=== PATIENT | female | born 1985 | race Caucasian/White ===

== ENCOUNTER → 2023-03-12 | Outpatient (CLI) | payer BC, SELFPAY ==
[2023-03-12 13:17] LABS: Absolute Lymphocyte Count 5.64 X10^3/uL (0.83-4.51); Absolute Neutrophil Count 4.1 X10^3/uL (2.0-7.7); Basophil# 0.07 X10^3/uL; Basophil% 0.7 % (0-1); Eosinophil# 0.12 X10^3/uL; Eosinophils% 1.1 % (0-5); Erythrocyte Sedimentation Rate 17 mm/hr (0-30); Hematocrit 49.4 % (37-47); Hemoglobin 17.4 g/dL (12.0-15.0); Lymphocyte # 5.64 X10^3/ul (0.83-4.51); Lymphocyte % 53.8 % (19-41); Mean Corp Hgb Conc 35.2 g/dL (32-36); Mean Corpuscular Hgb 30.7 pg (27.0-32.0); Mean Corpuscular Volume 87.1 fL (81-99); Mean Platelet Vol. 9.7 fl (6.2-12.0); Monocyte# 0.56 X10^3/uL; Monocyte% 5.3 % (0-10); NRBC Flagged by Analyzer 0 % (0-5); Neutrophil # 4.05 X10^3/uL (2.7-7.7); Neutrophil % 38.7 % (47-70); POSITIVE DIFFERENTIAL YES; Platelet Count 275 K/mm3 (150-450); RBC Distribution Width CV 12.9 % (11.6-14.6); RBC Distribution Width SD 40.7 fl (35.1-43.9); Red Blood Count 5.67 M/mm3 (4.2-5.4); White Blood Count 10.5 K/mm3 (4.4-11.0)
[2023-03-12 13:18] LABS: Differential Indicated SCAN CRITERIA MET
[2023-03-12 13:44] LABS: Anion Gap 4 (5-15); BUN 10 mg/dL (7-18); BUN/Creat Ratio 12.6 RATIO (10-20); CRP, High Sensitivity Cardiac 2.15 mg/L; Calcium,Total 9.5 mg/dL (8.5-10.1); Chloride 103 mmol/L (98-107); Cholesterol 261 mg/dL (200); Creatinine, Serum 0.79 mg/dL (0.55-1.02); EST Glomerular Filtration Rate 87 mL/min (>60); Est Glom Filt Rate - Afr Amer 106 mL/min (>60); Glucose 231 mg/dL (74-106); High Density Lipoprotein 32 mg/dL; Potassium 3.9 mmol/L (3.5-5.1); Rheumatoid Factor < 10.0 IU/mL (<15); Sodium Level 134 mmol/L (136-145); Triglycerides 390 mg/dL; Very Low Density Lipoprotein 78 mg/dL (5-40)
[2023-03-16 13:07] LABS: Anti-Nuclear Antibody Test Negative (.); Anti-Scleroderma-70 AB <0.2 AI (0.0-0.9)
[2023-03-16 17:07] LABS: Anti-Cardiolipin Ab, IgG, Qn < 9 GPL U/mL (0-14); Anti-Cardiolipin Ab, IgM, Qn < 9 MPL U/mL (0-12); Beta-2-Glycoprotein I IgA <9 (0-25); Beta-2-Glycoprotein I IgG <9 (0-20); Beta-2-Glycoprotein I IgM <9 (0-32); Dilute Prothrombin Time (dPT) 38.6 sec (0.0-47.6); Dilute Russell Viper Venom 39.6 sec (0.0-47.0); Interpretation Comment: (.); dPT Confirm Ratio 1.22 Ratio (0.00-1.34)
== END | disposition home or self-care (01) ==
LOC: LAB 12:27
PROVIDERS: PCP Registered Nurse; Referring Provider Internal Medicine Cardiovascular Disease; Visit Provider Internal Medicine Cardiovascular Disease
DX: I10 Essential (primary) hypertension (principal); F17.200 Nicotine dependence, unspecified, uncomplicated; I73.00 Raynaud's syndrome without gangrene
CPT/HCPCS: 36415; 80048; 80061; 85025; 85652; 86038; 86141; 86146; 86147; 86235; 86431

== ENCOUNTER → 2023-04-09 | Outpatient (CLI) | payer BC, SELFPAY ==
--- NOTE | 2023-04-09 12:54 | ART_ITS ---
Reason For Study: toe discoloration Procedure A bilateral lower extremity continuous wave Doppler with analog waveform analysis and ankle brachial indexes. TOE PPG'S TAKEN ON ALL DIGITS. PRESSURES TAKEN ON GREAT TOE'S ONLY DUE TO TOE SIZE. Left Segmental Pressures Left brachial= 132mmHg. Left posterior tibial artery = 138mmHg. Left dorsalis pedis artery = 136mmHg. Left digit = 118 mmHg. The left dorsalis pedis waveforms are triphasic. The left posterior tibial artery waveforms are triphasic. Right Segmental Pressures Right brachial= 124mmHg. Right posterior tibial artery = 133mmHg. Right dorsalis pedis artery = 124mmHg. Right digit = 41 mmHg. The right dorsalis pedis waveforms are triphasic. The right posterior tibial artery waveforms are triphasic. Indices The right ankle brachial index by the posterior tibial artery is 1.01. The right ankle brachial index by the dorsalis pedis is .94. The right digital-brachial index is .31. The left ankle brachial index by the posterior tibial artery is 1.05. The left ankle brachial index by the dorsalis pedis is 1.03. The left digital-brachial index is .89. VL/Ankle Brachial Index Interpretation Summary Right DUNCAN 1.01, normal. Doppler/PVR waveforms of the right leg normal at rest. TBI and digit waveforms diminished, pedal/digit disease vs spasm Left DUNCAN 1.05, normal. TBI and Doppler/PVR waveforms of the left leg normal at rest. Ordering Physician: Yamilet Curiel Performed By: Alex Reyna RVT
== END | disposition home or self-care (01) ==
LOC: CVS 12:51
PROVIDERS: PCP Registered Nurse; Referring Provider Internal Medicine Cardiovascular Disease; Visit Provider Internal Medicine Cardiovascular Disease
DX: I73.00 Raynaud's syndrome without gangrene (principal); E11.9 Type 2 diabetes mellitus without complications; F17.200 Nicotine dependence, unspecified, uncomplicated; I10 Essential (primary) hypertension; E78.5 Hyperlipidemia, unspecified
CPT/HCPCS: 93922

== ENCOUNTER → 2023-04-21 | Outpatient (CLI) | payer BC, SELFPAY | END | disposition home or self-care (01) | LOC: PSN 13:13 | PROVIDERS: PCP Registered Nurse; Referring Provider Internal Medicine Cardiovascular Disease; Visit Provider Internal Medicine Cardiovascular Disease | DX: I73.00 Raynaud's syndrome without gangrene (principal); I10 Essential (primary) hypertension; R00.2 Palpitations | CPT/HCPCS: 93225; 93226 ==

== ENCOUNTER → 2023-05-21 | Outpatient (CLI) | payer BC, SELFPAY ==
--- NOTE | 2023-05-21 10:02 | ECHOD_ITS ---
Reason For Study: HYPERTENSION Procedure This was a 2D Doppler, Color Flow transthoracic echocardiogram. The study was technically difficult. Exam performed in department. Left Ventricle Normal size and thickness. The left ventricular ejection fraction is 60 %. Normal diastololic function. Right Ventricle Normal right ventricle. Atria The left and right atria are normal. Bubble contrast study is negative for PFO/ASD. Mitral Valve Trivial mitral valve insufficiency. Tricuspid Valve Trivial tricuspid valve insufficiency. Unable to estimate RV systolic pressure due to insufficient tricuspid regurgitant envelope. Aortic Valve Trisinus/trileaflet aortic valve. Pulmonic Valve The pulmonic valve is not well visualized. Great Vessels Normal sized aortic root. Pericardium/Pleural No pericardial effusion. Medication 22 gauge I.V. with prn adaptor inserted into right arm. Performed a rapid injection of agitated mix of 9 cc saline and 1cc air to assess for atrial septal defect. MMode/2D Measurements & Calculations LVIDd: 4.2 cm IVSd: 0.99 cm Ao root diam: 3.1 cm LVIDs: 2.9 cm LVPWd: 1.0 cm RVDd: 2.9 cm FS: 30.6 % LAV(MOD-bp): 20.4 ml LVAd ap4: 25.5 cm2 SV(MOD-sp4): 40.8 ml LAV(MOD-bp) Indexed: 11.5 ml/m2 LVLd ap4: 7.6 cm LAV(MOD-sp2): 21.9 ml EDV(MOD-sp4): 70.0 ml LAV(MOD-sp4): 19.1 ml EDV(sp4-el): 72.4 ml LVAs ap4: 14.4 cm2 LVLs ap4: 5.9 cm ESV(MOD-sp4): 29.2 ml ESV(sp4-el): 29.9 ml EF(MOD-sp4): 58.3 % EF(sp4-el): 58.7 % SV(sp4-el): 42.4 ml LA A4 area: 9.8 cm2 LA dimension(2D): 3.1 cm RA A4 area: 9.5 cm2 Time Measurements MV dec time: 0.17 sec Doppler Measurements & Calculations MV E max west: 68.1 cm/sec Lat Peak E' West: 14.1 cm/sec Med Peak E' West: 10.1 cm/sec MV A max west: 63.5 cm/sec E/E' lat: 4.8 E/E' med: 6.7 MV E/A: 1.1 Ao V2 max: 108.0 cm/sec LV V1 max: 89.7 cm/sec PA V2 max: 94.5 cm/sec Ao max P.7 mmHg LV V1 max P.2 mmHg ECHO/Echo Complete Interpretation Summary The left ventricular ejection fraction is 60 %. Bubble contrast study is negative for PFO/ASD. The study was technically difficult. Ordering Physician: Yamilet Curiel Referring Physician: PEDRO HAWTHORNE Performed By: Janel Jimenez RDCS
--- OUTSIDE RECORDS SUMMARY | 2023-05-21 10:25 | XMS RPT_ITS | CCD ---
Author Name Unknown Address [address] [place] [address] Organization [facility] Care Team Providers Care Certified Ophthalmic Surgical Assistant Name Role Phone MARINE DIALS SUPERVISOR-CONTINUOUS MINING MACHINE LODE MINER, KIRSTEN A Primary Care Physi ming [place] Rounding Nurse, Davi Unavailable Unavai lable MARINE DIALS SUPERVISOR-CONTINUOUS MINING MACHINE LODE MINER, KIRSTEN A Primary Care Un available SONAM LY MD Consulting Unavailable FLORIDALMA DODSON MD Attending Unavailable DENAE LEVY, DR KANG Admitting Unavailab SALLY Rondon MD Consulting Unavaila ble MARINE DIALS SUPERVISOR-CONTINUOUS MINING MACHINE LODE MINER, KIRSTEN A Primary Care Un available MARINE DIALS SUPERVISOR-CONTINUOUS MINING MACHINE LODE MINER, KIRSTEN A Attending Un available MARINE DIALS SUPERVISOR-CONTINUOUS MINING MACHINE LODE MINER, KIRSTEN A Primary Care Un available MARINE DIALS SUPERVISOR-CONTINUOUS MINING MACHINE LODE MINER, KIRSTEN A Attending Un available MARINE DIALS SUPERVISOR-CONTINUOUS MINING MACHINE LODE MINER, KIRSTEN A Primary Care Un available MARINE DIALS SUPERVISOR-CONTINUOUS MINING MACHINE LODE MINER, KIRSTEN A Attending Un available MARINE DIALS SUPERVISOR-CONTINUOUS MINING MACHINE LODE MINER, KIRSTEN A Primary Care Un available CAROL PINEDO MD Attending Unavailable MARINE DIALS SUPERVISOR-CONTINUOUS MINING MACHINE LODE MINER, KIRSTEN A Primary Care Un available MARINE DIALS SUPERVISOR-CONTINUOUS MINING MACHINE LODE MINER, KIRSTEN A Attending Un available MARINE DIALS SUPERVISOR-CONTINUOUS MINING MACHINE LODE MINER, KIRSTEN A Primary Care Un available KIA ESPINAL MD Attending Unavailable MARINE DIALS SUPERVISOR-CONTINUOUS MINING MACHINE LODE MINER, KIRSTEN A Primary Care Un available ACRMEN LEVY, DR NAM Attending Unavailab le Medications Current Medications Medication Drug Class(es) Dates Sig (Normalized) Sig (Original) albuterol MDI (90 mcg/inh) CFC free inhalation aerosol (6 sources) Start: 08-15-2022 take 2 puff(s) by inhalation every four hours as needed for wheezing albuterol MDI (90 mcg/inh) CFC free inhalation aerosol 2 puff(s), Inhalation, q4h, PRN as needed for wheezing, # 8.5 gram(s), 0 Refill(s), Pharmacy: [facility]/pharmacy #[id number], Productive cough, 155, cm, 08/15/22 16:25:00 EDT, Height Start Date: 08/15/22 Status: Ordered amLODIPine 10 mg oral tablet (2 sources) Dihydropyridine Calcium Channel Roseanne Start: 04-12-2023 amLODIPine 10 mg oral tablet Dose : 10 mg = 1 tab(s), Oral, qDay Start Date: 04/12/23 Status: Ordered Problems Active Problems Problem Classification Problem Date Documented Date Episodic/Chronic Anxiety disorders (6 sources) Mixed anxiety and depressive disorder 11-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 Calculus of urinary tract (6 sources) Kidney stone 01-08-2017 Episodic Diabetes mellitus with complications (2 sources) Type 2 diabetes mellitus in obese 03-20-2023 Chronic Disorders of lipid metabolism (5 sources) Hyperlipidemia 11-07-2022 Chronic Epilepsy; convulsions (1 source) Seizure; Translations: [Unspecified convulsions] Onset: 04-13-2023 Episodic Other circulatory disease (2 sources) Cold foot 03-20-2023 Episodic Other connective tissue disease (5 sources) Pain in right lower limb 11-07-2022 Episodic Other connective tissue disease (2 sources) Foot pain 03-20-2023 Episodic Other nutritional; endocrine; and metabolic disorders (6 sources) Obesity 11-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 Other nutritional; endocrine; and metabolic disorders (2 sources) Body mass index 30+ - obesity 03-20-2023 Chronic Other skin disorders (5 sources) Foot callus 11-07-2022 Episodic Substance-related disorders (2 sources) Nicotine dependence 03-20-2023 Chronic Past or Other Problems Problem Classification Problem Date Documented Da te Episodic/Chronic Other screening for suspected conditions (not mental disorders or infectious disease) (2 sources) Encounter for screening for malignant neoplasm of cervix; Translations: [Encounter for screening for malignant neoplasm of cervix] Onset: 11-10-2022 Episodic Results Test Name Value Interpretation Reference Range Facil ity Vital Signs Date Time Vital Sign Value Performing Clinician Faci [facility] 04-13-2023 14:42-0500 Body temperature 97.52 [degF] DR JORGE LUIS PHILIPPE MD [address] [place] [id number] 04-13-2023 14:42-0500 Diastolic Blood Pressure Non-Invasive 70 mm[Hg] DR JORGE LUIS PHILIPPE MD [address] 04-13-2023 14:42-0500 Heart rate 80 /min DR JORGE LUIS PHILIPPE MD [address] 04-13-2023 14:42-0500 Reason For Taking VItal Signs DR JORGE LUIS PHILIPPE MD [address] 04-13-2023 14:42-0500 Respiratory rate 18 /min DR JORGE LUIS PHILIPPE MD [address] 04-13-2023 14:42-0500 Systolic Blood Pressure Non-Invasive 124 mm[Hg] DR JORGE LUIS PHILIPPE MD [address] [place] [id number] 04-13-2023 11:35-0500 Blood Pressure Cuff Size DR JORGE LUIS PHILIPPE MD [address] 04-13-2023 11:35-[address] JORGE LUIS PHILIPPE MD [address] 04-13-2023 11:35-[address] JORGE LUIS PHILIPPE MD [address] [place] [id number] 04-13-2023 11:35-0500 Body temperature 97.52 [degF] DR JORGE LUSI PHILIPPE MD [address] 04-13-2023 11:35-0500 Diastolic Blood Pressure Non-Invasive 67 mm[Hg] DR JORGE LUIS PHILIPPE MD [address] 04-13-2023 11:35-0500 Heart rate 88 /min DR JORGE LUIS PHILIPPE MD [address] [place] [id number] 04-13-2023 11:35-0500 Reason For Taking VItal Signs DR JORGE LUIS PHILIPPE MD [address] [place] [id number] 04-13-2023 11:35-0500 Respiratory rate 18 /min DR JORGE LUIS PHILIPPE MD [address] [place] [id number] 04-13-2023 11:35-0500 Systolic Blood Pressure Non-Invasive 125 mm[Hg] DR JORGE LUIS PHILIPPE MD [address] [place] [id number] 04-13-2023 07:44-05[address] Blood Pressure Cuff Size DR JORGE LUIS PHILIPPE MD [address] [place] [id number] 04-13-2023 07:44-[address] JORGE LUIS PHILIPPE MD [address] [place] [id number] 04-13-2023 07:44-[address] JORGE LUIS PHILIPPE MD [address] [place] [id number] 04-13-2023 07:44-0500 Body temperature 98.06 [degF] DR JORGE LUIS PHILIPPE MD [address] [place] [id number] 04-13-2023 07:44-0500 Diastolic Blood Pressure Non-Invasive 79 mm[Hg] DR JORGE LUIS PHILIPPE MD [address] [place] [id number] 04-13-2023 07:44-0500 Heart rate 80 /min DR JORGE LUIS PHILIPPE MD [address] [place] [id number] 04-13-2023 07:44-0500 Reason For Taking VItal Signs DR JORGE LUIS PHILIPPE MD [address] [place] [id number] 04-13-2023 07:44-0500 Respiratory rate 18 /min DR JORGE LUIS PHILIPPE MD [address] [place] [id number] 04-13-2023 07:44-0500 Systolic Blood Pressure Non-Invasive 121 mm[Hg] DR JORGE LUIS PHILIPPE MD [address] [place] [id number] 04-13-2023 05:00-0500 Heart rate 93 /min DR JORGE LUIS PHILIPPE MD [address] [place] [id number] 04-13-2023 03:48-05[address] Blood Pressure Cuff Size DR JORGE LUIS PHILIPPE MD [address] [place] [id number] 04-13-2023 03:48-[address] JORGE LUIS PHILIPPE MD [facility] 04-13-2023 03:48-[address] JORGE LUIS PHILIPPE MD [facility] 04-13-2023 03:48-0500 Heart rate 95 /min DR JORGE LUIS PHILIPPE MD [address] [place] [id number] 04-13-2023 01:32-0500 Body height [address] JORGE LUIS PHILIPPE MD [facility] 04-13-2023 01:32-0500 Body weight 81.[address] JORGE LUIS PHILIPPE MD [address] [place] [id number] 04-13-2023 01:32-0500 Body weight 33.15 kg/m2 DR JORGE LUIS PHILIPPE MD [address] [place] [id number] 04-13-2023 01:31-0500 Heart rate 86 /min DR JORGE LUIS PHILIPPE MD [facility] 04-12-2023 17:15-0500 Body weight 87.[address] JORGE LUIS PHILIPPE MD [facility] Encounters Encounter Date Encounter Type Care Provider Facility Start: 04-12-2023 End: 04-13-2023 ambulatory KIRSTEN HAWTHORNE DIALS SUPERVISOR-CONTINUOUS MINING MACHINE LODE MINER Facility:A Start: 04-12-2023 End: 04-13-[address] JORGE LUIS PHILIPPE MD [facility] Start: 04-03-2023 End: 04-04-2023 ambulatory KIRSTEN HAWTHORNE DIALS SUPERVISOR-CONTINUOUS MINING MACHINE LODE MINER Facility:B Start: 04-03-2023 End: 04-03-2023 Patient encounter procedure CAROL PINEDO MD [facility] Start: 03-20-2023 End: 03-20-2023 Emergency department patient visit KIRSTEN HAWTHORNE DIALS SUPERVISOR-CONTINUOUS MINING MACHINE LODE MINER Facility:B Start: 01-01-2023 End: 01-02-2023 ambulatory KIRSTEN HAWTHORNE DIALS SUPERVISOR-CONTINUOUS MINING MACHINE LODE MINER Facility:B Start: 01-01-2023 End: 01-01-2023 Patient encounter procedure KIRSTEN HAWTHORNE DIALS SUPERVISOR-CONTINUOUS MINING MACHINE LODE MINER [facility] Start: 12-15-2022 End: 12-15-2022 Emergency department patient visit KIRSTEN HAWTHORNE DIALS SUPERVISOR-CONTINUOUS MINING MACHINE LODE MINER Facility:B Start: 11-13-2022 End: 11-14-2022 ambulatory KIRSTEN HAWTHORNE DIALS SUPERVISOR-CONTINUOUS MINING MACHINE LODE MINER Facility:B Start: 11-13-2022 End: 11-13-2022 Patient encounter procedure KIRSTEN HAWTHORNE DIALS SUPERVISOR-CONTINUOUS MINING MACHINE LODE MINER [facility] Start: 11-10-2022 End: 11-15-2022 ambulatory KIRSTEN HAWTHORNE DIALS SUPERVISOR-CONTINUOUS MINING MACHINE LODE MINER Facility:B Start: 11-10-2022 End: 11-14-2022 Outreach Lab KIRSTEN HAWTHORNE DIALS SUPERVISOR-CONTINUOUS MINING MACHINE LODE MINER [facility] Start: 10-24-2022 End: 10-25-2022 ambulatory KIRSTEN HAWTHORNE DIALS SUPERVISOR-CONTINUOUS MINING MACHINE LODE MINER Facility:B Start: 10-24-2022 End: 10-24-2022 Patient encounter procedure KIRSTEN HAWTHORNE DIALS SUPERVISOR-CONTINUOUS MINING MACHINE LODE MINER [facility] Procedures Date Procedure Procedure Detail Performing Clinician None (qualifier value) GABY HAWTHORNE DIALS SUPERVISOR-CONTINUOUS MINING MACHINE LODE MINER Immunizations Immunization Date Immunization Notes Care Provider Fa cili 04-13-2023 influenza, injectabl e, quadrivalent, preservative free DR JORGE LUIS PHILIPPE MD [facility] Payers Date Payer Category Payer Unknown [id number] 1985 Unknown [id number] [id number] 1987 Unknown [id number] 2.16.8 [id number] 1987 Unknown [id number] 2.16.8 [id number] 1987 Unknown [id number] 2.16.8 [id number] 1987 Unknown [id number] 2.16.8 [id number] 1987 Unknown [id number] 2.16.8 [id number] 1987 Unknown [id number] 2.16.8 [id number] 1987 Unknown [id number] 2.16.8 [id number] Social History Date Type Detail Facility Start: 11-20-2020 Tobacco smoking status Light t obacco smoker (finding) [facility] Sex Assigned At Female [facility] Functional Status Date Assessment Result Facility 04-13-2023 Functional Status None [facility] 04-13-2023 Functional Status Room check performed [facility] 04-13-2023 Functional Status [facility] 04-13-2023 Functional Status Single level home [facility] 04-13-2023 Functional Status [facility] 04-13-2023 Functional Status [facility] 04-13-2023 Functional Status [facility] 04-13-2023 Functional Status 11pm-7am [facility] Mental Status Date Assessment Result Facility 04-13-2023 Mental Status Oriented x 4 [facility] 04-13-2023 Mental Status [facility] 04-12-2023 Mental Status [facility] Clinical Notes 04-12-2023 to 04-13-2023 Note Date & Type Note Facility 04-13-2023 Hospital Discharge instructions Patient Education 04/13/2023 18:36:14 Diabetes Mellitus and Nutrition, Adult Diabetes Mellitus and Nutrition, Adult When you have diabetes (diabetes mellitus), it is very important to have healthy eating habits because your blood sugar (glucose) levels are greatly affected by what you eat and drink. Eating healthy foods in the appropriate amounts, at about the same times every day, can help you: Control your blood glucose. Lower your risk of heart disease. Improve your blood pressure. Reach or maintain a healthy weight. Every person with diabetes is different, and each person has different needs for a meal plan. Your health care provider may recommend that you work with a diet and research nutritionist (dietitian) to make a meal plan that is best for you. Your meal plan may vary depending on factors such as: The calories you need. The medicines you take. Your weight. Your blood glucose, blood pressure, and cholesterol levels. Your activity level. Other health conditions you have, such as heart or kidney disease. How do carbohydrates affect me? Carbohydrates, also called carbs, affect your blood glucose level more than any other type of food. Eating carbs naturally raises the amount of glucose in your blood. Carb counting is a method for keeping track of how many carbs you eat. Counting carbs is important to keep your blood glucose at a healthy level, especially if you use insulin or take certain oral diabetes medicines. It is important to know how many carbs you can safely have in each meal. This is different for every person. Your dietitian can help you calculate how many carbs you should have at each meal and for each snack. Foods that contain carbs include: Bread, cereal, rice, pasta, and crackers. Potatoes and corn. Peas, beans, and lentils. Milk and yogurt. Fruit and juice. Desserts, such as cakes, cookies, ice cream, and candy. How does alcohol affect me? Alcohol can cause a sudden decrease in blood glucose (hypoglycemia), especially if you use insulin or take certain oral diabetes medicines. Hypoglycemia can be a life-threatening condition. Symptoms of hypoglycemia (sleepiness, dizziness, and confusion) are similar to symptoms of having too much alcohol. If your health care provider says that alcohol is safe for you, follow these guidelines: Limit alcohol intake to no more than 1 drink per day for non women and 2 drinks per day for men. One drink equals 12 oz of beer, 5 oz of wine, or 1 oz of hard liquor. Do not drink on an empty stomach. Keep yourself hydrated with water, diet soda, or unsweetened iced tea. Keep in mind that regular soda, juice, and other mixers may contain a lot of sugar and must be counted as carbs. What are tips for following this plan? Reading food labels Start by checking the serving size on the Nutrition Facts label of packaged foods and drinks. The amount of calories, carbs, fats, and other nutrients listed on the label is based on one serving of the item. Many items contain more than one serving per package. Check the total grams (g) of carbs in one serving. You can calculate the number of servings of carbs in one serving by dividing the total carbs by 15. For example, if a food has 30 g of total carbs, it would be equal to 2 servings of carbs. Check the number of grams (g) of saturated and trans fats in one serving. Choose foods that have low or no amount of these fats. Check the number of milligrams (mg) of salt (sodium) in one serving. Most people should limit total sodium intake to less than 2,300 mg per day. Always check the nutrition information of foods labeled as low-fat or nonfat . These foods may be higher in added sugar or refined carbs and should be avoided. Talk to your dietitian to identify your daily goals for nutrients listed on the label. Shopping Avoid buying canned, premade, or processed foods. These foods tend to be high in fat, sodium, and added sugar. Shop around the outside edge of the grocery store. This includes fresh fruits and vegetables, bulk grains, fresh meats, and fresh dairy. Cooking Use low-heat cooking methods, such as baking, instead of high-heat cooking methods like deep frying. Cook using healthy oils, such as olive, canola, or sunflower oil. Avoid cooking with butter, cream, or high-fat meats. Meal planning Eat meals and snacks regularly, preferably at the same times every day. Avoid going long periods of time without eating. Eat foods high in fiber, such as fresh fruits, vegetables, beans, and whole grains. Talk to your dietitian about how many servings of carbs you can eat at each meal. Eat 4 6 ounces (oz) of lean protein each day, such as lean meat, chicken, fish, eggs, or tofu. One oz of lean protein is equal to: ?1 oz of meat, chicken, or fish. ?1 egg. ? cup of tofu. Eat some foods each day that contain healthy fats, such as avocado, nuts, seeds, and fish. Lifestyle Check your blood glucose regularly. Exercise regularly as told by your health care provider. This may include: ?150 minutes of moderate-intensity or vigorous-intensity exercise each week. This could be brisk walking, biking, or water aerobics. ?Stretching and doing strength exercises, such as yoga or weightlifting, at least 2 times a week. Take medicines as told by your health care provider. Do not use any products that contain nicotine or tobacco, such as cigarettes and e-cigarettes. If you need help quitting, ask your health care provider. Work with a counselor or environmental educator to identify strategies to manage stress and any emotional and social challenges. Questions to ask a health care provider Do I need to meet with a environmental educator? Do I need to meet with a dietitian? What number can I call if I have questions? When are the best times to check my blood glucose? Where to find more information: [place] [employer]: diabetes.org Academy of Nutrition and Dietetics: www.eatright.org National [place] of Diabetes and Digestive and Kidney Diseases (NIH): www.niddk.nih.gov Summary A healthy meal plan will help you control your blood glucose and maintain a healthy lifestyle. Working with a diet and research nutritionist (dietitian) can help you make a meal plan that is best for you. Keep in mind that carbohydrates (carbs) and alcohol have immediate effects on your blood glucose levels. It is important to count carbs and to use alcohol carefully. This information is not intended to replace advice given to you by your health care provider. Make sure you discuss any questions you have with your health care provider. Document Released: 02/05/2006 Document Revised: 04/23/2018 Document Reviewed: 06/15/2017 [employer] Patient Education 2020 [employer] 04/13/2023 18:35:58 Seizure, Adult, [id number] Seizure, Adult A seizure is a sudden burst of abnormal electrical activity in the brain. Seizures usually last from 30 seconds to 2 minutes. They can cause many different symptoms. Usually, seizures are not harmful unless they last a long time. What are the causes? Common causes of this condition include: Fever or infection. Conditions that affect the brain, such as: ?A brain abnormality that you were born with. ?A brain or head injury. ?Bleeding in the brain. ?A tumor. ?Stroke. ?Brain disorders such as autism or cerebral palsy. Low blood sugar. Conditions that are passed from parent to child (are inherited). Problems with substances, such as: ?Having a reaction to a drug or a medicine. ?Suddenly stopping the use of a substance (withdrawal). In some cases, the cause may not be known. A person who has repeated seizures over time without a clear cause has a condition called epilepsy. What increases the risk? You are more likely to get this condition if you have: A family history of epilepsy. Had a seizure in the past. A brain disorder. A history of head injury, lack of oxygen at , or strokes. What are the signs or symptoms? There are many types of seizures. The symptoms vary depending on the type of seizure you have. Examples of symptoms during a seizure include: Shaking (convulsions). Stiffness in the body. Passing out (losing consciousness). Head nodding. Staring. Not responding to sound or touch. Loss of bladder control and bowel control. Some people have symptoms right before and right after a seizure happens. Symptoms before a seizure may include: Fear. Worry (anxiety). Feeling like you may vomit (nauseous). Feeling like the room is spinning (vertigo). Feeling like you saw or heard something before (jimmy christensen). Odd tastes or smells. Changes in how you see. You may see flashing lights or spots. Symptoms after a seizure happens can include: Confusion. Sleepiness. Headache. Weakness on one side of the body. How is this treated? Most seizures will stop on their own in under 5 minutes. In these cases, no treatment is needed. Seizures that last longer than 5 minutes will usually need treatment. Treatment can include: Medicines given through an IV tube. Avoiding things that are known to cause your seizures. These can include medicines that you take for another condition. Medicines to treat epilepsy. Surgery to stop the seizures. This may be needed if medicines do not help. Follow these instructions at home: Medicines Take uphu-xfb-[id number] and prescription medicines only as told by your doctor. Do not eat or drink anything that may keep your medicine from working, such as alcohol. Activity Do not do any activities that would be dangerous if you had another seizure, like driving or swimming. Wait until your doctor says it is safe for you to do them. If you live in the [place] ask your local DMV (department of [place]) when you can drive. Get plenty of rest. Teaching others Teach friends and family what to do when you have a seizure. They should: Lay you on the ground. Protect your head and body. Loosen any tight clothing around your neck. Turn you on your side. Not hold you down. Not put anything into your mouth. Know whether or not you need emergency care. Stay with you until you are better. General instructions Contact your doctor each time you have a seizure. Avoid anything that gives you seizures. Keep a seizure diary. Write down: ?What you think caused each seizure. ?What you remember about each seizure. Keep all follow-up visits as told by your doctor. This is important. Contact a doctor if: You have another seizure. You have seizures more often. There is any change in what happens during your seizures. You keep having seizures with treatment. You have symptoms of being sick or having an infection. Get help right away if: You have a seizure that: ?Lasts longer than 5 minutes. ?Is different than seizures you had before. ?Makes it harder to breathe. ?Happens after you hurt your head. You have any of these symptoms after a seizure: ?Not being able to speak. ?Not being able to use a part of your body. ?Confusion. ?A bad headache. You have two or more seizures in a row. You do not wake up right after a seizure. You get hurt during a seizure. These symptoms may be an emergency. Do not wait to see if the symptoms will go away. Get medical help right away. Call your local emergency services (911 in the [place] Do not drive yourself to the hospital. Summary Seizures usually last from 30 seconds to 2 minutes. Usually, they are not harmful unless they last a long time. Do not eat or drink anything that may keep your medicine from working, such as alcohol. Teach friends and family what to do when you have a seizure. Contact your doctor each time you have a seizure. This information is not intended to replace advice given to you by your health care provider. Make sure you discuss any questions you have with your health care provider. Document Released: 10/27/2008 Document Revised: 07/29/2019 Document Reviewed: 07/29/2019 [employer] Patient Education 2020 [employer]. Follow Up Care 04/12/2023 17:11:20 With:[facility] Address: When:Within 3 Week(s) Comments:[facility] [place] [address] or [facility] Niilrn up in 2-3 weeks and discuss whether you would benefit from a sleep deprived EEG. With:KIRSTEN HAWTHORNE Address: [address] [place] [phone] When:3-7 days [facility] 04-13-2023 Note Discharge Instructions Thank you for allowing [facility] to assist you with your healthcare needs. The following is important discharge information regarding your hospital visit. Your Care Team KIRSTEN HAWTHORNE Your Diagnosis Diabetes Low blood pressure Productive cough Seizure Seizure- Seizure like activity What to do next Instructions From Your Doctor We recommend refraining from driving if possible for 2-6 weeks given your possible seizure. Follow up with all doctors involved in your care. Your MRI brain is pending. Follow up with doctors in your care to discuss results. Follow Up Appointments Follow Up with [facility] When In 3 weeks Why: [facility] [address] [place] [address] or Main Follow up in 2-3 weeks and discuss whether you would benefit from a sleep deprived EEG. Where: Follow Up with KIRSTEN HAWTHORNE When Within 3-7 days Where: [address] [place] [phone] The Following Activity and Diet Have Been Ordered for You Discharge Activity - Ordered -- Resume your pre-hospitalization activity, 04/13/23 15:29:00 EST Discharge Diet - Ordered -- Type of Diet: Regular, Calories Permitted: 1800 kcal, 04/13/23 15:29:00 EST The Following Equipment Has Been Ordered for You No qualifying data available. The Following Treatments Have Been Ordered for You Discharge Labs No qualifying data available. Discharge Radiology No qualifying data available. Other Therapies No qualifying data available. Post Acute Orders No qualifying data available. Someone Will Contact You Regarding These Home Health Referrals No home referrals have been ordered for you. No one will call you. Allergies NKA Immunizations This Visit Given Vaccine Dateinfluenza virus vaccine, inactivated 04/13/2023 Medications Please ask your primary doctor or pharmacist before taking any other medication not listed, including over the counter drugs, herbal medications, vitamins and or supplements as they may interact with your home medications. What How Much When Why Instructions Last Dose Unchanged albuterol (albuterol MDI (90 mcg/ inh) CFC free inhalation aerosol) 2 puff(s) by inhalation Every 4 hours as needed for as needed for wheezing Productive cough Unchanged amLODIPine (amLODIPine 10 mg oral tablet) 1 tab(s) by mouth Once a day Unchanged aspirin (aspirin 81 mg oral delayed release tablet) 1 tab(s) by mouth Every day Unchanged atorvastatin (atorvastatin 10 mg oral tablet) 1 tab(s) by mouth Once a day Unchanged cholecalciferol (Vitamin D3 125 mcg (5000 intl units) oral capsule) 1 cap by mouth Once a day with food Unchanged cilostazol (cilostazol 100 mg oral tablet) 1 tab(s) by mouth Two (2) times a day Unchanged clopidogrel (Plavix 75 mg oral tablet) 1 tab(s) by mouth Once a day Unchanged glimepiride (glimepiride 2 mg oral tablet) 1 tab(s) by mouth Once a day Diabetes short term refill in lieu of provider absence Unchanged lisinopril (lisinopril 10 mg oral tablet) 1 tab(s) by mouth Once a day short term refill in lieu of provider absence Unchanged omega-3 polyunsaturated fatty acids (omega-3 fish oil 1000 mg oral capsule) 1 cap by mouth Once a day Unchanged sertraline (sertraline 50 mg oral tablet) 1 tab(s) by mouth Once a day short term refill in lieu of provider absence Please take this list to your next doctor s visit. Bring all medications you take, including over the counter medications, herbals and other supplements with you to your doctor s visit. Patients and families are reminded to discard old lists and to update any records with all medication providers or retail pharmacies. Education Materials Diabetes Mellitus and Nutrition, Adult When you have diabetes (diabetes mellitus), it is very important to have healthy eating habits because your blood sugar (glucose) levels are greatly affected by what you eat and drink. Eating healthy foods in the appropriate amounts, at about the same times every day, can help you: Control your blood glucose. Lower your risk of heart disease. Improve your blood pressure. Reach or maintain a healthy weight. Every person with diabetes is different, and each person has different needs for a meal plan. Your health care provider may recommend that you work with a diet and research nutritionist (dietitian) to make a meal plan that is best for you. Your meal plan may vary depending on factors such as: The calories you need. The medicines you take. Your weight. Your blood glucose, blood pressure, and cholesterol levels. Your activity level. Other health conditions you have, such as heart or kidney disease. How do carbohydrates affect me? Carbohydrates, also called carbs, affect your blood glucose level more than any other type of food. Eating carbs naturally raises the amount of glucose in your blood. Carb counting is a method for keeping track of how many carbs you eat. Counting carbs is important to keep your blood glucose at a healthy level, especially if you use insulin or take certain oral diabetes medicines. It is important to know how many carbs you can safely have in each meal. This is different for every person. Your dietitian can help you calculate how many carbs you should have at each meal and for each snack. Foods that contain carbs include: Bread, cereal, rice, pasta, and crackers. Potatoes and corn. Peas, beans, and lentils. Milk and yogurt. Fruit and juice. Desserts, such as cakes, cookies, ice cream, and candy. How does alcohol affect me? Alcohol can cause a sudden decrease in blood glucose (hypoglycemia), especially if you use insulin or take certain oral diabetes medicines. Hypoglycemia can be a life-threatening condition. Symptoms of hypoglycemia (sleepiness, dizziness, and confusion) are similar to symptoms of having too much alcohol. If your health care provider says that alcohol is safe for you, follow these guidelines: Limit alcohol intake to no more than 1 drink per day for non women and 2 drinks per day for men. One drink equals 12 oz of beer, 5 oz of wine, or 1 oz of hard liquor. Do not drink on an empty stomach. Keep yourself hydrated with water, diet soda, or unsweetened iced tea. Keep in mind that regular soda, juice, and other mixers may contain a lot of sugar and must be counted as carbs. What are tips for following this plan? Reading food labels Start by checking the serving size on the Nutrition Facts label of packaged foods and drinks. The amount of calories, carbs, fats, and other nutrients listed on the label is based on one serving of the item. Many items contain more than one serving per package. Check the total grams (g) of carbs in one serving. You can calculate the number of servings of carbs in one serving by dividing the total carbs by 15. For example, if a food has 30 g of total carbs, it would be equal to 2 servings of carbs. Check the number of grams (g) of saturated and trans fats in one serving. Choose foods that have low or no amount of these fats. Check the number of milligrams (mg) of salt (sodium) in one serving. Most people should limit total sodium intake to less than 2,300 mg per day. Always check the nutrition information of foods labeled as low-fat or nonfat . These foods may be higher in added sugar or refined carbs and should be avoided. Talk to your dietitian to identify your daily goals for nutrients listed on the label. Shopping Avoid buying canned, premade, or processed foods. These foods tend to be high in fat, sodium, and added sugar. Shop around the outside edge of the grocery store. This includes fresh fruits and vegetables, bulk grains, fresh meats, and fresh dairy. Cooking Use low-heat cooking methods, such as baking, instead of high-heat cooking methods like deep frying. Cook using healthy oils, such as olive, canola, or sunflower oil. Avoid cooking with butter, cream, or high-fat meats. Meal planning Eat meals and snacks regularly, preferably at the same times every day. Avoid going long periods of time without eating. Eat foods high in fiber, such as fresh fruits, vegetables, beans, and whole grains. Talk to your dietitian about how many servings of carbs you can eat at each meal. Eat 4 6 ounces (oz) of lean protein each day, such as lean meat, chicken, fish, eggs, or tofu. One oz of lean protein is equal to: ? 1 oz of meat, chicken, or fish. ? 1 egg. ? cup of tofu. Eat some foods each day that contain healthy fats, such as avocado, nuts, seeds, and fish. Lifestyle Check your blood glucose regularly. Exercise regularly as told by your health care provider. This may include: ? 150 minutes of moderate-intensity or vigorous-intensity exercise each week. This could be brisk walking, biking, or water aerobics. ? Stretching and doing strength exercises, such as yoga or weightlifting, at least 2 times a week. Take medicines as told by your health care provider. Do not use any products that contain nicotine or tobacco, such as cigarettes and e-cigarettes. If you need help quitting, ask your health care provider. Work with a counselor or environmental educator to identify strategies to manage stress and any emotional and social challenges. Questions to ask a health care provider Do I need to meet with a environmental educator? Do I need to meet with a dietitian? What number can I call if I have questions? When are the best times to check my blood glucose? Where to find more information: [place] [employer]: diabetes.org Academy of Nutrition and Dietetics: www.eatright.org National [place] of Diabetes and Digestive and Kidney Diseases (NIH): www.niddk.nih.gov Summary A healthy meal plan will help you control your blood glucose and maintain a healthy lifestyle. Working with a diet and research nutritionist (dietitian) can help you make a meal plan that is best for you. Keep in mind that carbohydrates (carbs) and alcohol have immediate effects on your blood glucose levels. It is important to count carbs and to use alcohol carefully. This information is not intended to replace advice given to you by your health care provider. Make sure you discuss any questions you have with your health care provider. Document Released: 02/05/2006 Document Revised: 04/23/2018 Document Reviewed: 06/15/2017 [employer] Patient Education 2020 [employer] Seizure, Adult A seizure is a sudden burst of abnormal electrical activity in the brain. Seizures usually last from 30 seconds to 2 minutes. They can cause many different symptoms. Usually, seizures are not harmful unless they last a long time. What are the causes? Common causes of this condition include: Fever or infection. Conditions that affect the brain, such as: ? A brain abnormality that you were born with. ? A brain or head injury. ? Bleeding in the brain. ? A tumor. ? Stroke. ? Brain disorders such as autism or cerebral palsy. Low blood sugar. Conditions that are passed from parent to child (are inherited). Problems with substances, such as: ? Having a reaction to a drug or a medicine. ? Suddenly stopping the use of a substance (withdrawal). In some cases, the cause may not be known. A person who has repeated seizures over time without a clear cause has a condition called epilepsy. What increases the risk? You are more likely to get this condition if you have: A family history of epilepsy. Had a seizure in the past. A brain disorder. A history of head injury, lack of oxygen at , or strokes. What are the signs or symptoms? There are many types of seizures. The symptoms vary depending on the type of seizure you have. Examples of symptoms during a seizure include: Shaking (convulsions). Stiffness in the body. Passing out (losing consciousness). Head nodding. Staring. Not responding to sound or touch. Loss of bladder control and bowel control. Some people have symptoms right before and right after a seizure happens. Symptoms before a seizure may include: Fear. Worry (anxiety). Feeling like you may vomit (nauseous). Feeling like the room is spinning (vertigo). Feeling like you saw or heard something before (jimmy christensen). Odd tastes or smells. Changes in how you see. You may see flashing lights or spots. Symptoms after a seizure happens can include: Confusion. Sleepiness. Headache. Weakness on one side of the body. How is this treated? Most seizures will stop on their own in under 5 minutes. In these cases, no treatment is needed. Seizures that last longer than 5 minutes will usually need treatment. Treatment can include: Medicines given through an IV tube. Avoiding things that are known to cause your seizures. These can include medicines that you take for another condition. Medicines to treat epilepsy. Surgery to stop the seizures. This may be needed if medicines do not help. Follow these instructions at home: Medicines Take civd-ahi-rayytzl and prescription medicines only as told by your doctor. Do not eat or drink anything that may keep your medicine from working, such as alcohol. Activity Do not do any activities that would be dangerous if you had another seizure, like driving or swimming. Wait until your doctor says it is safe for you to do them. If you live in the [place] ask your local DMV (department of [place]) when you can drive. Get plenty of rest. Teaching others Teach friends and family what to do when you have a seizure. They should: Lay you on the ground. Protect your head and body. Loosen any tight clothing around your neck. Turn you on your side. Not hold you down. Not put anything into your mouth. Know whether or not you need emergency care. Stay with you until you are better. General instructions Contact your doctor each time you have a seizure. Avoid anything that gives you seizures. Keep a seizure diary. Write down: ? What you think caused each seizure. ? What you remember about each seizure. Keep all follow-up visits as told by your doctor. This is important. Contact a doctor if: You have another seizure. You have seizures more often. There is any change in what happens during your seizures. You keep having seizures with treatment. You have symptoms of being sick or having an infection. Get help right away if: You have a seizure that: ? Lasts longer than 5 minutes. ? Is different than seizures you had before. ? Makes it harder to breathe. ? Happens after you hurt your head. You have any of these symptoms after a seizure: ? Not being able to speak. ? Not being able to use a part of your body. ? Confusion. ? A bad headache. You have two or more seizures in a row. You do not wake up right after a seizure. You get hurt during a seizure. These symptoms may be an emergency. Do not wait to see if the symptoms will go away. Get medical help right away. Call your local emergency services (911 in the [place] Do not drive yourself to the hospital. Summary Seizures usually last from 30 seconds to 2 minutes. Usually, they are not harmful unless they last a long time. Do not eat or drink anything that may keep your medicine from working, such as alcohol. Teach friends and family what to do when you have a seizure. Contact your doctor each time you have a seizure. This information is not intended to replace advice given to you by your health care provider. Make sure you discuss any questions you have with your health care provider. Document Released: 10/27/2008 Document Revised: 07/29/2019 Document Reviewed: 07/29/2019 Elsevier Patient Education 2019 [employer] Additional Information VACCINATE! IT SAVES LIVES! Members of the community who have not yet received the COVID-19 vaccine and would like to receive it can visit one of [facility] vaccine clinics. There are many vaccine clinic locations within the [facility]. For locations and available times, please visit https://gettheshot.coronavirus.[place].gov/. It is important to note that some COVID mobile vaccine clinics are held outdoors and may be canceled in rainy or stormy conditions. To learn more about pediatric vaccinations (ages 5-11), we invite you to visit the [employer] webpage. [email or web address] To learn more about the COVID-19 vaccine, we invite you to visit the CDC website for a list of frequently asked questions.https://www.cdc.gov/cor onavirus/2019-ncov/vaccines/faq.h tml [facility] Patient Portal Access Instructions: Stay connected with your healthcare team and access your personal medical information anytime with the [facility] Patient Portal. Please follow the directions below to create your [facility] account: 1.Access the email account you provided upon registration to the hospital/physician office.2.Look for an invitation email from [facility].3.Open the email and access the invitation link: Accept Invitation to [facility].4.Fill in the required forman to create your account. To access your account, visit [employer]. Click the blue button labeled Access Patient Portal and then log in with the username and password that you created in the steps above. You will be able to view your test results, lab results, a summary of your visits, upcoming appointments and more. There is also a convenient messaging option where you can send secure messages to your provider. In addition, you will have the ability to download any documents or summaries to your computer and/or send the information securely to a physician. Remember that your healthcare information is confidential, so carefully consider who you will allow to register on the [facility] for access to your information. You can also access the [facility] Patient Portal on the [facility] danna. Simply click on Patient Portal and then log into your account. If you would like to receive a full copy of your medical records, please contact the [facility] Medical Records Department by calling [phone], Thursday through Thursday between 8 a.m. and 4:30 p.m. HOW TO SAFELY DISPOSE OF PRESCRIPTION MEDICATIONS Please use one of the following methods to safely dispose of your unused medications. 1.Use a drug disposal kit: the drug disposal pouch allows you to safely discard your old and unused drugs. Ask your nurse to give you one when you are discharged.2.Visit a local take-back location: Many local pharmacies and police departments have programs that collect old and unwanted prescription drugs. Call your local pharmacy or go to http://[employer]co[employer]/3P1Ju5v to find one close to you.3.Make use of household items: Use cat litter or old coffee grounds to dispose medications if other options are not available. Mix your drugs with these household products, seal them in an airtight container and throw it into the garbage. Call [facility]: [phone] to be sure your drugs can be disposed of in this way. Some medicines may require a different approach.4.Never flush your medications down the toilet. IF YOU HAVE BEEN PRESCRIBED AN OPIOID FOR PAIN If you have been prescribed an opioid (such as hydrocodone, oxycodone or morphine), it is critical to understand the possible side effects and risks of opioid pain medications. Even when taken as directed, opioids can have several side effects including: Tolerance, meaning you might need to take more of a medication for the same pain relief. Nausea, vomiting and/or constipation. Sleepiness, dizziness, dry mouth, confusion, depression or itching. Physical dependence, meaning you have withdrawal symptoms when a medication is stopped, can develop within a few days. KNOW YOUR RESPONSIBILITIES It is important to know exactly how much and how often to take the opioid pain medications you are prescribed. Never take opioids in higher amounts or more often than prescribed. Do not combine opioids with alcohol or other drugs that cause drowsiness, such as benzodiazepines, also known as benzos, including diazepam and alprazolam, muscle relaxants or sleep aids. Never sell or share prescription opioids. This is illegal. Store opioids in a secure place and out of reach of others (including children, family, friends and visitors). The last page of this document has been signed and retained as a CHART COPY. Signatures Patient Education Materials Diabetes Mellitus and Nutrition, Adult Seizure, Adult, [facility] Medication Leaflets My discharge plan and instructions have been reviewed and explained to me and I,LJ DERAS understand my current condition and have read and understand these discharge instructions. I have received a written copy of the plan/instructions. If I have questions, I am aware that I should contact my doctor. 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: Date/Time: Relationship to Patient: ____ Witness Name/Signature: Date/Time: [facility] 04-13-2023 Discharge summary Date of Service 04/13/2023 Discharge Diagnosis Diabetes (E11.9 - ICD-10-CM) Low blood pressure ([id number] - PNED) Productive cough (R05.8 - ICD-10-CM) Seizure (R56.9 - ICD-10-CM) Seizure- Seizure like activity ([id number] - PNED) Additional Orders: Ordered: Ativan,Start: 04/13/23 13:03:00 EST, Dose = 0.5 mg, = 0.25 mL, IV Push, Once, PRN, as needed for anxiety, 04/13/23 13:03:00 EST Hospital Course 37-year-old female with PMHx obesity, HLD, tobacco use, DM 2 presents to the ED for hypotension and shaking episode. She was sitting watching TV feeling generally weak felt as if her body went limp. Her father had seen her slumped backward in the chair with her eyes closed and noted shaking of the upper extremities with activity going on for roughly 3 to 4 minutes. When she regained consciousness she was nauseous and diaphoretic presented to the hospital noted blood pressure 90s over 50s And tachycardia to 112. Labs were unremarkable other than noting cannabinoid use. Due to duration of potential seizure-like activity she was placed in observation for further assessment neurology was consulted and ordered an EEG and MRI brain. After the EEG returned normal patient was felt to be safe for discharge home. She had a MRI prior to discharge and results are currently pending. MRI brain is pending at this time. Allergies NKA Procedures EEG Normal awake and asleep EEG. The lack of epileptiform activity does not conclusively rule out a seizure disorder. Consults Consult to Physician - Ordered -- 04/13/23 1:25:00 BOBO, SALLY SOLITARIO MD, Routine, 3-5 mins of unprovoked witnessed convulsive activity followed by snoring and confusion. First episode. Imaging Results and Diagnostics CT Head or Brain w/o Contrast Result Date: April 12, 2023 Verified By: MIGUELITO FLORES DO CLINICAL STATEMENT: IMPRESSION: No acute intracranial hemorrhage or acute large territory infarction. I have reviewed the resident's preliminary report and agree with findings andimpression. XR Chest 1 View Result Date: April 12, 2023 Verified By: MIGUELITO FLORES DO CLINICAL STATEMENT: IMPRESSION: Hypoventilatory changes. No acute cardiopulmonary process. I have reviewed the resident's preliminary report and agree with findings andimpression. Physical Exam Vitals and Measurements T: 36.4 C (Oral) TMIN: 36.0 C (Oral) TMAX: 36.7 C (Oral) HR: 80(Monitored) RR: 18 BP: 124/70 SpO2: 98% HT: 157 cm WT: 81.7 kg BMI: 33.15 Weight Dosing Weight: 81.7 kg (04/13/23) Dosing Weight: 87.1 kg (04/12/23) general: well appearing, no distress neuro: alert and oriented, answering questions appropriately. cardiac: rrr lungs: ctabl Pending Labs and Studies MRI brain is pending at this time. Code Status Code Status - Ordered -- 04/13/23 1:26:00 EST, Full Code, Constant Order Admission Date 04/12/2023 Discharge Date 04/13/2023 Patient Instructions We recommend refraining from driving if possible for 2-6 weeks given your possible seizure. Follow up with all doctors involved in your care. Medications Unchanged albuterol (albuterol MDI (90 mcg/inh) CFC free inhalation aerosol)2 puff(s) by inhalation every 4 hours as needed as needed for wheezing. Refills: 0. amLODIPine (amLODIPine 10 mg oral tablet)1 tab(s) by mouth once a day. aspirin (aspirin 81 mg oral delayed release tablet)1 tab(s) by mouth every day. Refills: 0. atorvastatin (atorvastatin 10 mg oral tablet)1 tab(s) by mouth once a day. cholecalciferol (Vitamin D3 125 mcg (5000 intl units) oral capsule)1 cap by mouth once a day. with food. cilostazol (cilostazol 100 mg oral tablet)1 tab(s) by mouth two (2) times a day. Refills: 0. clopidogrel (Plavix 75 mg oral tablet)1 tab(s) by mouth once a day. Refills: 0. glimepiride (glimepiride 2 mg oral tablet)1 tab(s) by mouth once a day. short term refill in lieu of provider absence. Refills: 0. lisinopril (lisinopril 10 mg oral tablet)1 tab(s) by mouth once a day. short term refill in lieu of provider absence. Refills: 0. omega-3 polyunsaturated fatty acids (omega-3 fish oil 1000 mg oral capsule)1 cap by mouth once a day. sertraline (sertraline 50 mg oral tablet)1 tab(s) by mouth once a day. short term refill in lieu of provider absence. Refills: 0. Follow Up [facility] Up with [facility] [place] When In 3 weeks Why: [facility] [address], [place] [address] or Main Follow up in 2-3 weeks and discuss whether you would benefit from a sleep deprived EEG. Where: Follow Up with [facility] When Within 3-7 days Where: [address] [place] [address]- [phone] Follow Up Appointments No qualifying data available. Follow Up Labs/Studies Discharge Labs No Follow-up Labs Discharge Studies No Follow-up Studies Discharge Diet regular Discharge Activity resume activity Condition on Discharge fair Discharge Disposition home Information Provided To patient Time Spent 35 minutes Digitally Signed by FLORIDALMA DODSON MD on 04/13/2023 03:28 PM [facility] 04-13-2023 Note ORIGINAL EXAMINATION: MRI OF THE BRAIN WITHOUT AND WITH RCSDEZDP41/20/2023 6:24 pm MRI brain without and with intravenous contrast, , seizure protocol TECHNIQUE: Multiplanar multisequence MRI of the head/brain was performed without and with the administration of intravenous contrast. Also additional images as per seizure protocol. COMPARISON: CT head 04/12/2023 HISTORY: ORDERING SYSTEM PROVIDED HISTORY: Reason for Exam: Seizure, FINDINGS: The brain shows no focus of restricted diffusion. No acute intracranial hemorrhage, mass effect or midline shift. No hydrocephalus. Ventricles and sulci are age appropriate. No significant focal parenchymal abnormality is seen in the brain. There no asymmetric findings in the temporal lobes. Normal craniocervical junction. No enlargement of the pituitary. Vascular signal voids are present in the basilar and internal carotid arteries. Postcontrast images show no abnormal enhancement in the brain. The major dural venous sinuses are patent. The paranasal sinuses and mastoids are clear. Orbital contents are symmetric and unremarkable. IMPRESSION: Negative contrast-enhanced MRI of the brain. RECOMMENDATIONS: Unless otherwise specified, incidental findings do not require dedicated imaging and follow-up. Interpreted by: Ry Zhong MD Preliminary Report By: Ry Zhong MD Electronically signed By Ry Zhong MD Dictated Date: 04/13/2023 7:46:08 PM Prelim Date: 04/13/2023 7:47:47 PM Sign Date: 04/13/2023 7:47:47 PM Ordering Provider: SONAM LY [facility] 04-13-2023 Discharge summary Date of Service 04/13/2023 Discharge Diagnosis Diabetes (E11.9 - ICD-10-CM) Low blood pressure ([id number] - PNED) Productive cough (R05.8 - ICD-10-CM) Seizure (R56.9 - ICD-10-CM) Seizure- Seizure like activity ([id number] - PNED) Additional Orders: Ordered: Ativan,Start: 04/13/23 13:03:00 EST, Dose = 0.5 mg, = 0.25 mL, IV Push, Once, PRN, as needed for anxiety, 04/13/23 13:03:00 EST Hospital Course 37-year-old female with PMHx obesity, HLD, tobacco use, DM 2 presents to the ED for hypotension and shaking episode. She was sitting watching TV feeling generally weak felt as if her body went limp. Her father had seen her slumped backward in the chair with her eyes closed and noted shaking of the upper extremities with activity going on for roughly 3 to 4 minutes. When she regained consciousness she was nauseous and diaphoretic presented to the hospital noted blood pressure 90s over 50s And tachycardia to 112. Labs were unremarkable other than noting cannabinoid use. Due to duration of potential seizure-like activity she was placed in observation for further assessment neurology was consulted and ordered an EEG and MRI brain. After the EEG returned normal patient was felt to be safe for discharge home. She had a MRI prior to discharge and results are currently pending. MRI brain is pending at this time. Allergies NKA Procedures EEG Normal awake and asleep EEG. The lack of epileptiform activity does not conclusively rule out a seizure disorder. Consults Consult to Physician - Ordered -- 04/13/23 1:25:00 EST, SALLY SOLITARIO MD, Routine, 3-5 mins of unprovoked witnessed convulsive activity followed by snoring and confusion. First episode. Imaging Results and Diagnostics CT Head or Brain w/o Contrast Result Date: April 12, 2023 Verified By: MIGUELITO FLORES DO CLINICAL STATEMENT: IMPRESSION: No acute intracranial hemorrhage or acute large territory infarction. I have reviewed the resident's preliminary report and agree with findings andimpression. XR Chest 1 View Result Date: April 12, 2023 Verified By: MIGUELITO FLORES DO CLINICAL STATEMENT: IMPRESSION: Hypoventilatory changes. No acute cardiopulmonary process. I have reviewed the resident's preliminary report and agree with findings andimpression. Physical Exam Vitals and Measurements T: 36.4 C (Oral) TMIN: 36.0 C (Oral) TMAX: 36.7 C (Oral) HR: 80(Monitored) RR: 18 BP: 124/70 SpO2: 98% HT: 157 cm WT: 81.7 kg BMI: 33.15 Weight Dosing Weight: 81.7 kg (04/13/23) Dosing Weight: 87.1 kg (04/12/23) general: well appearing, no distress neuro: alert and oriented, answering questions appropriately. cardiac: rrr lungs: ctabl Pending Labs and Studies MRI brain is pending at this time. Code Status Code Status - Ordered -- 04/13/23 1:26:00 EST, Full Code, Constant Order Admission Date 04/12/2023 Discharge Date 04/13/2023 Patient Instructions We recommend refraining from driving if possible for 2-6 weeks given your possible seizure. Follow up with all doctors involved in your care. Medications Unchanged albuterol (albuterol MDI (90 mcg/inh) CFC free inhalation aerosol)2 puff(s) by inhalation every 4 hours as needed as needed for wheezing. Refills: 0. amLODIPine (amLODIPine 10 mg oral tablet)1 tab(s) by mouth once a day. aspirin (aspirin 81 mg oral delayed release tablet)1 tab(s) by mouth every day. Refills: 0. atorvastatin (atorvastatin 10 mg oral tablet)1 tab(s) by mouth once a day. cholecalciferol (Vitamin D3 125 mcg (5000 intl units) oral capsule)1 cap by mouth once a day. with food. cilostazol (cilostazol 100 mg oral tablet)1 tab(s) by mouth two (2) times a day. Refills: 0. clopidogrel (Plavix 75 mg oral tablet)1 tab(s) by mouth once a day. Refills: 0. glimepiride (glimepiride 2 mg oral tablet)1 tab(s) by mouth once a day. short term refill in lieu of provider absence. Refills: 0. lisinopril (lisinopril 10 mg oral tablet)1 tab(s) by mouth once a day. short term refill in lieu of provider absence. Refills: 0. omega-3 polyunsaturated fatty acids (omega-3 fish oil 1000 mg oral capsule)1 cap by mouth once a day. sertraline (sertraline 50 mg oral tablet)1 tab(s) by mouth once a day. short term refill in lieu of provider absence. Refills: 0. Follow Up Follow Up with [facility] [place] When In 3 weeks Why: [facility] [address] [place] [address] or Main Follow up in 2-3 weeks and discuss whether you would benefit from a sleep deprived EEG. Where: Follow Up with [facility] When Within 3-7 days Where: [address] [place] [address]- [phone] Follow Up Appointments No qualifying data available. Follow Up Labs/Studies Discharge Labs No Follow-up Labs Discharge Studies No Follow-up Studies Discharge Diet regular Discharge Activity resume activity Condition on Discharge fair Discharge Disposition home Information Provided To patient Time Spent 35 minutes Digitally Signed by FLORIDALMA DODSON MD on 04/13/2023 03:28 PM [facility] 04-13-2023 Neurology Consult note Date of Service April 13, 2023 Reason for Consultation Possible seizure Referring Physician Dr. Dodson History of Present Illness 37-year-old female with no history of seizure or unexplained loss of consciousness or head injury. Most of the history was from her and a phone call to her father who witnessed her event. She was sitting watching TV when she started feeling generally weak and unwell, as if her body was starting to go limp. Her father then saw her slumped backward in her chair, with her eyes closed, and she then had shaking of her upper extremities. From his description it appeared to be convulsions without true hypertonicity. There was no head version. He was fairly certain this went on for 3 to 4 minutes before self abating. At this point the patient recalls waking up and feeling diaphoretic and nauseous. She was slow to respond but was not disoriented. EMS room arrived within a few minutes and brought her to the hospital; she recalls all of these events happening. She was essentially back to baseline by the time she arrived. Pressure was reported to be much lower than normal at 90s/50s. She denies any history of d trinity vu but does report that on a very rare occasion she will smell something such as smoke that is not there, but that this is occurred perhaps a few times throughout her entire life. She does not recall any time that she woke up from sleep with a tongue bite or sore all over. She denies any headache. Review of Systems Aside from what is mentioned in the HPI, there were no other pertinent positives in the patient's neurologic review of systems. Physical Exam Vitals and Measurements T: 36.4 C (Oral) TMIN: 36.0 C (Oral) TMAX: 36.7 C (Oral) HR: 88(Monitored) RR: 18 BP: 125/67 SpO2: 97% HT: 157 cm WT: 81.7 kg BMI: 33.15 Weight Dosing Weight: 81.7 kg (04/13/23) Dosing Weight: 87.1 kg (04/12/23) Neurologic Exam Mental Status: Orientation: oriented to person, [facility], and [facility] Language: normal fluency, normal simple comprehension Speech: non-dysarthric Cranial Nerves: Pupils: 4mm -> 2mm bilaterally Visual Forman: full to confrontation bilaterally Fundus: not well visualized as the patient wasn't tolerating the light and having trouble fixating CN III, IV, : EOMI. No nystagmus CN V: normal light touch and temp sensation in V1, V2, V3, bilaterally. CN VII: face symmetric at rest. Facial muscle strength intact CN VIII: auditory acuity intact to bedside testing Sensation: Light touch: intact in all 4 extremities Motor: Involuntary movements: none Strength: LUE: 5/5 proximally, 5/5 distally RUE: 5/5 proximally, 5/5 distally LLE: 5/5 proximally, 5/5 distally RLE: 5/5 proximally, 5/5 distally Reflexes: R L B 2 2 BR 2 2 P 2 2 Toes down down Coordination: Hjjgkm-poap-phoxnl movements intact bilaterally Lab Results 04/12 17:39 WBC: 9.2 Hgb: 14.5 Hct: 41.6 Platelet: 273 Neutrophil %: 59.6 Glucose Level: 172 H Sodium Level: 136 Potassium Level: 3.7 BUN: 10.0 Creatinine Lvl (s): 0.88 Imaging Results and Diagnostics CT Head or Brain w/o Contrast Result Date: April 12, 2023 Verified By: MIGUELITO FLORES DO CLINICAL STATEMENT: IMPRESSION: No acute intracranial hemorrhage or acute large territory infarction. I have reviewed the resident's preliminary report and agree with findings andimpression. XR Chest 1 View Result Date: April 12, 2023 Verified By: MIGUELITO FLORES DO CLINICAL STATEMENT: IMPRESSION: Hypoventilatory changes. No acute cardiopulmonary process. I have reviewed the resident's preliminary report and agree with findings andimpression. Assessment/Plan Convulsions NOS The entirety of her event is most suspicious for convulsive syncope related to hypotension, however the duration of 3 4 minutes is atypical, and warrants further testing for seizure/epilepsy. Her routine EEG here was normal. I ordered a brain MRI. If this is normal as well, anti-seizure medication can be held, but I would still suggest she have a 1 hour sleep-deprived EEG as an OP through [facility] in the next 2 3 weeks for further evaluation. Will follow peripherally and add further recommendations or formally follow-up as needed. Please call with any concerns or questions. A total of 60 minutes was spent on this case (including reviewing the chart, taking a history, examining the patient, generating a diagnosis/plan, and discussing with the patient and family.) D/w Dr. Dodson as well. Problem List/Past Medical History Ongoing BMI 32.0-32.9,adult Cold foot Depression with anxiety Foot callus HLD (hyperlipidemia) Kidney stones Nicotine dependence Obesity Right foot pain Right leg pain Screening for cervical cancer Type 2 diabetes mellitus with obesity Historical No qualifying data Procedure/Surgical History None Medications Inpatient acetaminophen, 650 mg= 2 tab(s), Oral, q6hWA, PRN albuterol 2.5 mg/3 mL (0.083%) inhalation solution, 2.5 mg= 3 mL, Inhalation, q4hRT, PRN amLODIPine, 10 mg= 1 tab(s), Oral, qDay aspirin 81 mg oral delayed release tablet, 81 mg= 1 tab(s), Oral, Daily Ativan, 2 mg= 1 mL, IV Push, q4h, PRN Ativan, 0.5 mg= 0.25 mL, IV Push, Once, PRN atorvastatin, 10 mg= 1 tab(s), Oral, qDay cilostazol, 100 mg= 1 tab(s), Oral, BID Dextrose 50% IV Push, 12.5 gram(s)= 25 mL, IV Push, AsDirected, PRN glimepiride, 2 mg= 1 tab(s), Oral, qDay melatonin, 3 mg= 1 tab(s), Oral, qHS, PRN melatonin, 3 mg= 1 tab(s), Oral, qHS, PRN Plavix, 75 mg= 1 tab(s), Oral, qDay sertraline, 50 mg= 1 tab(s), Oral, qDay Zofran, 4 mg= 2 mL, IV Push, q4h, PRN Zofran ODT, 4 mg= 1 tab(s), Oral, q6h, PRN Home albuterol MDI (90 mcg/inh) CFC free inhalation aerosol, 2 puff(s), Inhalation, q4h, PRN amLODIPine 10 mg oral tablet, 10 mg= 1 tab(s), Oral, qDay aspirin 81 mg oral delayed release tablet, 81 mg= 1 tab(s), Oral, Daily atorvastatin 10 mg oral tablet, 10 mg= 1 tab(s), Oral, qDay cilostazol 100 mg oral tablet, 100 mg= 1 tab(s), Oral, BID glimepiride 2 mg oral tablet, 2 mg= 1 tab(s), Oral, qDay lisinopril 10 mg oral tablet, 10 mg= 1 tab(s), Oral, qDay omega-3 fish oil 1000 mg oral capsule, 1000 mg= 1 cap(s), Oral, qDay Plavix 75 mg oral tablet, 75 mg= 1 tab(s), Oral, qDay sertraline 50 mg oral tablet, 50 mg= 1 tab(s), Oral, qDay Vitamin D3 125 mcg (5000 intl units) oral capsule, 125 mcg= 1 cap(s), Oral, qDay Allergies NKA Social History Smoking Status - 01/08/2017 Current every day smoker Alcohol - Low Risk, 01/08/2017 Use: Never., 08/16/2018 Home/Environment Domestic Concerns: Denies. Living situation: Home with assistance. [employer]: patient lived with father. Lives In: Single level home. Current Home Treatments Blood glucose monitoring. Professional Skilled Services or Special Community Resources None. Financial concerns: No. Marital Status: Unmarried., 11/12/2020 Nutrition/Health Type of diet: Regular. Appetite Good. Eating Difficulties None. Enteral Feedings No. TPN Feedings No. Skin Breakdown No. Caffeine intake amount: 6-7 cans of soda., 11/12/2020 Substance Abuse - Low Risk, 01/08/2017 Use: Never., 08/16/2018 Tobacco - High Risk, 11/11/2020 Nicotine Use: 4 or less cigarettes(less than 1/4 pack)/day in last 30 days. Type: Cigarettes. Smoking Cessation Information Refused smoking cessation information., 11/20/2020 Family History Cancer: Mother. Coronary artery disease: Mother. Diabetes: Father. Heart attack: Father. Farther: LOC with convulsions, onset late in life, no formal diagnosis Digitally Signed by SONAM LY MD on 04/13/2023 01:12 PM [facility] 04-13-2023 Note PROCEDURE TYPE: Routine inpatient EEG PROCEDURE DATE: 04/13/2023 REASON FOR EEG: Evaluate for epileptiform activity SUMMARY OF FINDINGS: During maximal wakefulness, there was a well-regulated 9 Hz posterior dominant rhythm which was symmetric and reactive. No consistent focal slowing or interhemispheric asymmetry was noted. Normal stage I and II sleep structures were identified. No interictal epileptiform discharges or electrographic seizures were identified. GENERAL IMPRESSION: Normal awake and asleep EEG. The lack of epileptiform activity does not conclusively rule out a seizure disorder. Digitally Signed by SONAM LY MD on 04/13/2023 01:04 PM [facility] 04-12-2023 History and physical note Date of Service 04/12/23 Chief Complaint Medic states Pt had a possible seizure While at home and when we arrived she was still unconscious History of Present Illness 37-year-old female with PMHx obesity, HLD, tobacco use, DM 2 presents to the ED for hypotension and shaking episode. History obtained by patient, ED physician, chart review. Per patient's , she was sitting watching brown skin when she hunched over and had generalized shaking of the arms and legs. Afterwards, she started snoring. Very slow return to consciousness and she was confused afterwards. Per paramedics, she was postictal. She did not receive any medications. The patient denies any abnormal symptoms prior including nausea or vomiting, change in bowel or bladder habits, fever or chills, cough, other acute complaints. She has a right middle toe with purple to black appearance which she states is significantly improved and it previously involved 3 feet. She is undergoing outpatient vascular work-up for this. No family history of seizures. In the emergency department she is tachycardic at 112. BP 95/57. Saturating adequately on room air. Not tachypneic. CBC with no leukocytosis, anemia, abnormal platelet count. BMP with glucose 172. CXR shows no acute process. CT head shows no acute intracranial abnormality. ECG shows NSR. She was given 1 L NS. Review of Systems Pertinent review of systems are included in the HPI. All other systems were reviewed and are negative for acute changes from the patient's baseline. Physical Exam Vitals and Measurements T: 36.0 C (Oral) HR: 112 RR: 18 BP: 95/57 SpO2: 95% WT: 87.1 kg Weight Dosing Weight: 87.1 kg (04/12/23) GA: Alert and oriented x3, no acute distress Abd: Not distended HEENT: NCAT, sclera anicteric, oral mucosa moist Pulmonary: No tachypnea or use of accessory respiratory muscles. MSK: No gross deformities Cardiovascular: Not tachycardic. She has normal dorsalis pedis pulses in the bilateral feet. Skin: Warm and dry. There is a black and purple discoloration of the right middle toe. Confirmed with the patient and family that this is improving from prior. She denies any pain in the toe. Neuro: Spontaneous movement of all extremities, cranial nerves II through XII grossly normal Psychiatric: Thought content, associations, attention are all normal. Lab Results 04/12 17:39 WBC: 9.2 10^3/mcL (04/12/23 17:39:00) RBC: 4.69 10^6/mcL (04/12/23 17:39:00) Hgb: 14.5 G/dL (04/12/23 17:39:00) Hct: 41.6 % (04/12/23 17:39:00) MCV: 88.7 fL (04/12/23 17:39:00) MCH: 31 pg (04/12/23 17:39:00) MCHC: 35 G/dL (04/12/23 17:39:00) RDW: 13.6 % (04/12/23 17:39:00) Platelet: 273 10^3/mcL (04/12/23 17:39:00) MPV: 7.6 fL (04/12/23 17:39:00) Monocyte Distribution Width: 18.82 (04/12/23 17:39:00) Neutrophil %: 59.6 % (04/12/23 17:39:00) Lymphocyte %: 32.8 % (04/12/23 17:39:00) Monocyte %: 5.6 % (04/12/23 17:39:00) Eosinophil %: 1.2 % (04/12/23 17:39:00) Basophil %: 0.8 % (04/12/23 17:39:00) Neutrophil, Absolute: 5.5 10^3/mcL (04/12/23 17:39:00) Lymphocyte, Absolute: 3 10^3/mcL (04/12/23 17:39:00) Monocyte, Absolute: 0.5 10^3/mcL (04/12/23 17:39:00) Eosinophil, Absolute: 0.1 10^3/mcL (04/12/23 17:39:00) Basophil, Absolute: 0.1 10^3/mcL (04/12/23 17:39:00) Heparin dose (APTT): None (03/20/23 16:50:00) APTT: 30.1 seconds (03/20/23 16:50:00) Protime: 10.7 seconds (03/20/23 16:50:00) PT International Ratio: 0.9 (03/20/23 16:50:00) Glucose Level: 172 mg/dL High (04/12/23 17:39:00) Sodium Level: 136 mEq/L (04/12/23 17:39:00) Potassium Level: 3.7 mEq/L (04/12/23 17:39:00) Chloride: 105 mEq/L (04/12/23 17:39:00) CO2: 24 mEq/L (04/12/23 17:39:00) Electrolyte Balance: 7 mEq/L (04/12/23 17:39:00) BUN: 10 mg/dL (04/12/23 17:39:00) Creatinine Lvl (s): 0.88 mg/dL (04/12/23 17:39:00) BUN/Creatinine Ratio: 11.4 ratio (04/12/23 17:39:00) Calcium Lvl: 9.4 mg/dL (04/12/23 17:39:00) GFR Non-: >60 (04/12/23 17:39:00) GFR : >60 (04/12/23:39:00) Troponin I High Sensitivity: 5.8 ng/L (03/20/23 16:50:00) Ethanol Level: <10.0 (04/12/23 17:39:00) Salicylate Lvl (ds): <3.0 Low (04/12/23:39:00) Acetaminophen (ds): <2.0 Low (04/12/23:39:00) Serum Drugs screened: See Below (04/12/23 17:39:00) Imaging Results and Diagnostics CT Head or Brain w/o Contrast Result Date: April 12, 2023 Verified By: MIGUELITO FLORES DO CLINICAL STATEMENT: IMPRESSION: No acute intracranial hemorrhage or acute large territory infarction. I have reviewed the resident's preliminary report and agree with findings andimpression. XR Chest 1 View Result Date: April 12, 2023 Verified By: MIGUELITO FLORES DO CLINICAL STATEMENT: IMPRESSION: Hypoventilatory changes. No acute cardiopulmonary process. I have reviewed the resident's preliminary report and agree with findings andimpression. EKG EC04/12/23: SINUS RHYTHM This EKG was read and contributed directly to the care of the patient. EKG was read and agreed to in [employer]. Electronic Signature: SIMON MONTE MD 04/12/2023 17:36:31 Assessment/Plan Seizure-like activity. Patient with 3 to 5 minutes of generalized shaking followed by confusion, snoring. Per paramedics, she appeared postictal when they arrived. Resolved without medications. No personal or family history of seizures. She will be admitted for further evaluation and conversation with neurology. -EEG -Seizure precautions -Neurology consult Serum and urine drug screen. DM 2. Glucoses in the 170s. Continue medications. Hypotension. Blood pressure was in the 90s over 50s. Typically it is much higher. She denies any acute symptoms including headache, lightheadedness, changes in vision. She has not taken any extra doses of her lisinopril. Pause home antihypertensives. Urinalysis HLD. Chronic. Continue medications. Toe discoloration. Based on the appearance, would suspect vascular insufficiency. She is undergoing outpatient vascular evaluation with PCP. Overall, the toes are improved in appearance per patient and family. Encourage smoking cessation Continue outpatient follow-up. Tobacco abuse. Encourage cessation. Patient request nicotine patch this will be offered. Cannabis use. She endorses frequent cannabis use but does not quantify the amount. Denies additional recreational substance use. Medications were not verified by pharmacy at the time of this dictation. Reconciliation to be completed once medications are verified; will address additional chronic medical problems at that time. DVT prophylaxis: SCDs Note dictated using voice recognition software and may contain typographical errors. Problem List/Past Medical History Ongoing BMI 32.0-32.9,adult Cold foot Depression with anxiety Foot callus HLD (hyperlipidemia) Kidney stones Nicotine dependence Obesity Right foot pain Right leg pain Screening for cervical cancer Type 2 diabetes mellitus with obesity Historical No qualifying data Procedure/Surgical History None Medications Home Medications (11) Active albuterol MDI (90 mcg/inh) CFC free inhalation aerosol 2 puff(s), PRN, Inhalation, q4h amLODIPine 5 mg oral tablet aspirin 81 mg oral delayed release tablet 81 mg = 1 tab(s), Oral, Daily atorvastatin 10 mg oral tablet cilostazol 100 mg oral tablet 100 mg = 1 tab(s), Oral, BID glimepiride 2 mg oral tablet 2 mg = 1 tab(s), Oral, qDay lisinopril 10 mg oral tablet 10 mg = 1 tab(s), Oral, qDay omega-3 fish oil 1000 mg oral capsule 1,000 mg = 1 cap(s), Oral, qDay Plavix 75 mg oral tablet 75 mg = 1 tab(s), Oral, qDay sertraline 50 mg oral tablet 50 mg = 1 tab(s), Oral, qDay Vitamin D3 125 mcg (5000 intl units) oral capsule 125 mcg = 1 cap(s), Oral, qDay Allergies NKA Social History Smoking Status - 01/08/2017 Current every day smoker Alcohol - Low Risk, 01/08/2017 Use: Never., 08/16/2018 Home/Environment Domestic Concerns: Denies. Living situation: Home with assistance. [employer]: patient lived with father. Lives In: Single level home. Current Home Treatments Blood glucose monitoring. Professional Skilled Services or Special Community Resources None. Financial concerns: No. Marital Status: Unmarried., 11/12/2020 Nutrition/Health Type of diet: Regular. Appetite Good. Eating Difficulties None. Enteral Feedings No. TPN Feedings No. Skin Breakdown No. Caffeine intake amount: 6-7 cans of soda., 11/12/2020 Substance Abuse - Low Risk, 01/08/2017 Use: Never., 08/16/2018 Tobacco - High Risk, 11/11/2020 Nicotine Use: 4 or less cigarettes(less than 1/4 pack)/day in last 30 days. Type: Cigarettes. Smoking Cessation Information Refused smoking cessation information., 11/20/2020 Family History Cancer: Mother. Coronary artery disease: Mother. Diabetes: Father. Heart attack: Father. Immunizations No qualifying data available. Code Status No qualifying data available. Digitally Signed by JORGE LUIS PHILIPPE MD on 04/12/2023 07:54 PM [facility] 04-12-2023 Note ORIGINAL EXAMINATION: CT OF THE HEAD WITHOUT TAVAIOOC62/19/2023 6:41 pm TECHNIQUE: CT of the head was performed without the administration of intravenous contrast. Automated exposure control, iterative reconstruction, and/or weight based adjustment of the mA/kV was utilized to reduce the radiation dose to as low as reasonably achievable. COMPARISON: None. HISTORY: ORDERING SYSTEM PROVIDED HISTORY: Reason for Exam: low bp, on blood thinner seizures FINDINGS: There is no intracranial hemorrhage, mass effect or abnormal extra-axial fluid collection. No CT evidence of acute large territorial infarct. The ventricles are unremarkable for patient age. The skull base and calvarium demonstrate no acute abnormality. The included paranasal sinuses and mastoid air cells are predominantly clear. IMPRESSION: No acute intracranial hemorrhage or acute large territory infarction. I have reviewed the resident's preliminary report and agree with findings and impression. Interpreted by: Miguelito Flores Preliminary Report By: Edson Seymour Electronically signed By Miguelito Flores Dictated Date: 04/12/2023 6:46:33 PM Prelim Date: 04/12/2023 6:52:15 PM Sign Date: 04/12/2023 6:55:26 PM Ordering Provider: ADI TRUJILLO [facility] 04-12-2023 Note ORIGINAL EXAMINATION: ONE XRAY VIEW OF THE CHEST04/12/2023 6:01 pm COMPARISON: Chest radiograph 01/04/2021 HISTORY: ORDERING SYSTEM PROVIDED HISTORY: Reason for Exam: SOB FINDINGS: The cardiomediastinal silhouette is stable. There is no pulmonary vascular congestion. Low lung volumes with hypoventilatory changes, notably interstitial prominence. There is no large focal consolidative opacity. No significant volume pleural effusion. No pneumothorax. IMPRESSION: Hypoventilatory changes. No acute cardiopulmonary process. I have reviewed the resident's preliminary report and agree with findings and impression. Interpreted by: Miguelito Flores Preliminary Report By: Edson Seymour Electronically signed By Miguelito Flores Dictated Date: 04/12/2023 6:02:33 PM Prelim Date: 04/12/2023 6:04:24 PM Sign Date: 04/12/2023 6:12:53 PM Ordering Provider: SIMON MONTE [facility] 04-12-2023 Note SINUS RHYTHM This EKG was read and contributed directly to the care of the patient. EKG was read and agreed to in [employer]. Electronic Signature: SIMON MONTE MD 04/12/2023 17:36:31 [facility] Seizure-like activity. Patie nt with 3 to 5 minutes of generalized shaking followed by confusion, snoring. Per paramedics, she appeared postictal when they arrived. Resolved without medications. No personal or family history of seizures. She will be admitted for further evaluation and conversation with neurology. -EEG -Seizure precautions -Neurology consult Serum and urine drug screen. DM 2. Glucoses in the 170s. Continue medications. Hypotension. Blood pressure was in the 90s over 50s. Typically it is much higher. She denies any acute symptoms including headache, lightheadedness, changes in vision. She has not taken any extra doses of her lisinopril. Pause home antihypertensives. Urinalysis HLD. Chronic. Continue medications. Toe discoloration. Based on the appearance, would suspect vascular insufficiency. She is undergoing outpatient vascular evaluation with PCP. Overall, the toes are improved in appearance per patient and family. Encourage smoking cessation Continue outpatient follow-up. Tobacco abuse. Encourage cessation. Patient request nicotine patch this will be offered. Cannabis use. She endorses frequent cannabis use but does not quantify the amount. Denies additional recreational substance use. Medications were not verified by pharmacy at the time of this dictation. Reconciliation to be completed once medications are verified; will address additional chronic medical problems at that time. DVT prophylaxis: SCDs Note dictated using voice recognition software and may contain typographical errors. Future Scheduled Tests Laboratory* Thyroid Stimulating Hormone 05/09/23 * Free T4 05/09/23 * A1C Hemoglobin 05/09/23 * Complete Blood Count 05/09/23 * Lipid Profile 05/09/23 * Albumin/Creatinine Ratio, Random Urine 05/09/23 * Vitamin D Level 05/09/23 * Complete Metabolic Panel 05/09/23 Radiology* XR Foot Minimum 3 Views Right 12/31/22 [facility] Evaluation + Plan note Future Appointments Appointment Date:11/07/2022 04:30:00 PM Scheduled Provider:KIRSTEN HAWTHORNE Location:[facility] Appointment Type:PC OV Follow Up [facility] Evaluation + Plan note Future Scheduled Tests Laboratory* Thyroid Stimulating Hormone 05/09/23 * Free T4 05/09/23 * A1C Hemoglobin 05/09/23 * Complete Blood Count 05/09/23 * Lipid Profile 05/09/23 * Albumin/Creatinine Ratio, Random Urine 05/09/23 * Vitamin D Level 05/09/23 * Complete Metabolic Panel 05/09/23 [facility] Evaluation + Plan note Future Appointments Appointment Date:01/14/2023 10:45:00 AM Scheduled Provider:ROBY PETER DPM Location:[facility] Appointment Type:POD DOCUMENT CONTROL SUPERVISOR Future Scheduled Tests Laboratory* Thyroid Stimulating Hormone 05/09/23 * Free T4 05/09/23 * A1C Hemoglobin 05/09/23 * Complete Blood Count 05/09/23 * Lipid Profile 05/09/23 * Albumin/Creatinine Ratio, Random Urine 05/09/23 * Vitamin D Level 05/09/23 * Complete Metabolic Panel 05/09/23 Radiology* XR Foot Minimum 3 Views Right 12/31/22 [facility] Evaluation + Plan note Future Scheduled Tests Laboratory* Thyroid Stimulating Hormone 05/09/23 * Free T4 05/09/23 * A1C Hemoglobin 05/09/23 * Complete Blood Count 05/09/23 * Lipid Profile 05/09/23 * Albumin/Creatinine Ratio, Random Urine 05/09/23 * Vitamin D Level 05/09/23 * Complete Metabolic Panel 05/09/23 Radiology* XR Foot Minimum 3 Views Right 12/31/22 [facility] Hospital course Narrative No data available for this section [facility] Hospital Discharge instructions No data available for this section [facility] Note* TEJAS GRAY MD: SIGN, VERIFY Event Display: VL Venous US/Doppler One Leg (DVT) [facility] Progress note No data available for this section [facility] Summary Purpose Family History No Family History Records Found No data available for this section No data available for this section No data available for this section No Family History Records Found Advance Directives No Advanced Directives Records FoundNo Advanced Directives Records Found Additional Source Comments INFORMATION SOURCE (unrecogn ized section and content) DATE CREATED AUTHOR AUTHOR'S ORGANIZ ATION 05/03/2023 [facility] ([place]) Patient Care team informatio n (unrecognized section and content) Care Team Personnel Name: KIRSTEN HAWTHORNE APRN-ANTHONY Position: P4 Advanced Child Day Care Provider Member Role: Primary Care Physician Address: Address: [address] [place] [address] [place] [address]- Care Team Related Persons Name: VICKI GRAHAM Name: BHAVYA OBREGON Address: Home [address] [place] [id number] [place] Name: BHAVYA OBREGON Address: Home [address] [place], [place] [phone] [place] Name: BHAVYA OBREGON Address: Home [address] [place], [place] [phone] [place] Name: BHAVYA OBREGON Address: Home [address] [place], [place] [phone] [place] Care Team Personnel Name: KIRSTEN HAWTHORNE APRN-CONTINUOUS MINING MACHINE LODE MINER Position: P4 Advanced Child Day Care Provider Member Role: Primary Care Physician Address: Address: [address] [place] [address]- [place] Care Team Related Persons Name: VICKI GRAHAM Name: BHAVYA OBREGON Address: Home [address] [place], [place] [phone] [place] Name: BHAVYA OBREGON Address: Home [address] [place], [place] [phone] [place] Name: BHAVYA OBREGON Address: Home [address] [place], [place] [phone] [place] Name: BHAVYA OBREGON Address: Home [address] [place], [place] [phone] [place] Care Team Personnel Name: KIRSTEN HAWTHORNE DIALS SUPERVISOR-CONTINUOUS MINING MACHINE LODE MINER Position: P4 Advanced Child Day Care Provider Member Role: Primary Care Physician Address: Address: [address] [place] [address]- Care Team Related Persons Name: VICKI GRAHAM Name: BHAVYA OBREGON Address: Home [address] [place], [place] [phone] [place] Name: BHAVYA OBREGON Address: Home [address] [place], [place] [phone] [place] Name: BHAVYA OBREGON Address: Home [address] [place], [place] [phone] [place] Name: BHAVYA OBREGON Address: Home [address] [place], [place] [phone] [place] Care Team Personnel Name: KIRSTEN HAWTHORNE APRN-CONTINUOUS MINING MACHINE LODE MINER Position: P4 Advanced Child Day Care Provider Member Role: Primary Care Physician Address: Address: [address] [place] [address]- [place] Care Team Related Persons Name: VICKI GRAHAM Name: BIRGIT OBREGONYCE Jimmy Address: Home [address] [place], [place] [phone] [place] Name: BHAVYA OBREGON Address: Home [address] [place], [place] [phone] [place] Name: BHAVYA OBREGON Address: Home [address] [place], [place] [phone] [place] Name: BIRGIT OBREGONYCE Jimmy Address: Home [address] [place], [place] [phone] [place] Care Team Personnel Name: KIRSTEN HAWTHORNE APRN-CONTINUOUS MINING MACHINE LODE MINER Position: P4 Advanced Child Day Care Provider Member Role: Primary Care Physician Address: Address: [address] [place] [address] Care Team Related Persons Name: VICKI GRAHAM Name: BIRGIT OBREGONYCE Jimmy Address: Home [address] [place], [place] [phone] [place] Name: BIRGIT OBREGONYCE Jimmy Address: Home [address] [place], [place] [phone] [place] Name: BHAVYA OBREGON Address: Home [address] [place], [place] [phone] [place] Name: BIRGIT OBREGONYCE Jimmy Address: Home [address] [place], [place] [phone] Care Team Personnel Name: [place] Nurse Position: Bed Management Member Role: Other Name: KIRSTEN HAWTHORNE DIALS SUPERVISOR-CONTINUOUS MINING MACHINE LODE MINER Position: P4 Advanced Child Day Care Provider Member Role: Primary Care Physician Address: Address: [address] [place] [address]- Name: Kirsten Andujar Position: P3 Registration- Rug Underlay Machine Operator Member Role: Registrar Name: ADI TRUJILLO MD Position: Resident Member Role: Resident Address: Address: [address] [facility] [place] [address]- [place] Name: SIMON MONTE MD Position: ED Physician Member Role: ED Physician Address: Address: [address] [facility] [place] [address]- [place] Name: Ovidio Calvert [facility] Position: [employer]: Division Chief/Tech Member Role: Funeral Arrangement Director Care Team Related Persons Name: VICKI GRAHAM Name: BHAVYA OBREGON Address: Home [address] [place], [place] [phone] [place] Name: BHAVYA OBREGON Address: Home [address] [place], [place] [phone] [place] Name: BHAVYA OBREGON Address: Home [address] [place] [phone] [place] Name: VALENTE OBREGON FOR RECORDS PERTAINING TO PATIENTS WHO ARE OR HAVE BEEN ENROLLED IN A CHEMICAL DEPENDENCY/SUBSTANCEABUSE PROGRAM, SOME INFORMATION MAY BE OMITTED. This clinical summary was aggregated from multiple sources. Caution should be exercised in using it in the provision of clinical care. This summary normalizes information from multiple sources, and as a consequence, information in this document may materially change the coding, format and clinical context of patient data. In addition, data may be omitted in some cases. CLINICAL DECISIONS SHOULD BE BASED ON THE PRIMARY CLINICAL RECORDS. [facility] [employer] [facility]. provides no warranty or guarantee of the accuracy or completeness of information in this document.
== END | disposition home or self-care (01) ==
LOC: CVS 10:01
PROVIDERS: PCP Registered Nurse; Referring Provider Internal Medicine Cardiovascular Disease; Visit Provider Internal Medicine Cardiovascular Disease
DX: I10 Essential (primary) hypertension (principal); E11.9 Type 2 diabetes mellitus without complications; F17.200 Nicotine dependence, unspecified, uncomplicated
CPT/HCPCS: 93306; A4216

== ENCOUNTER → 2023-07-01 | Outpatient (CLI) | payer BC, SELFPAY ==
[2023-07-01 12:46] VITALS: BP 97/61; PULSE 82; RESP 18; TEMP 36.1; O2SAT 99; BMI 32.7
[2023-07-01] MEDS: 0.9% Saline Lock 10 ML Syringe IV (12:55)
[2023-07-01 13:12] LABS: CREATININE FINGERSTICK 1.1 mg/dL (0.55-1.02)
[2023-07-01 13:32] VITALS: BP 97/51; PULSE 77
[2023-07-01] MEDS: Nitroglycerin SL (ED/IMG/CATH) 0.4 MG TABLET 0.400000000000000022 MG SL (13:32)
[2023-07-01 13:33] VITALS: BP 97/51; PULSE 81; RESP 18; O2SAT 98
--- NOTE | 2023-07-01 13:42 | CT_ITS ---
STUDY: CT CHEST WITH CONTRAST REASON FOR EXAM: Female, 38 years old. 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 Cardiac over read examination. TECHNIQUE: Transaxial imaging was performed following intravenous administration of IV 67mL Isovue-370. Individualized dose optimization techniques were used for this CT. COMPARISON: No relevant priors. FINDINGS: CHEST The lungs are normal. There is no demonstrated pleural abnormality. Minimal anterior pericardial thickening. Normal mediastinum. Normal hilar regions. Normal unenhanced pulmonary arteries. Normal aorta arch and descending thoracic aorta. Normal osseous structures. There is no demonstrated abnormality of the visualized upper abdomen. CT/Limited Chest CT Cardiac Only IMPRESSION: Minimal anterior pericardial thickening. Electronically Signed: Jono Michlee MD at 14:28 EST ,
--- NOTE | 2023-07-12 17:00 | CCTA.WCONT ---
CCTA w/Cont Coronary Arteries Date of Study:: 07/01/23 Hypertension hyperlipidemia Coronary Calcium Scoring: High-resolution Computed Tomographic imaging of the chest was performed on [07/01/2023], with particular attention paid to the coronary arteries. Intravenous contrast agent was administered per protocol and images reconstructed and displayed. LEFT MAIN CORONARY ARTERY: Normal [] LEFT ANTERIOR DESCENDING CORONARY ARTERY: This arises from the left main coronary artery and has an area in the proximal region with minimal plaquing but no significant stenosis noted [] LEFT CIRCUMFLEX CORONARY ARTERY: No significant atherosclerotic disease present [] RIGHT CORONARY ARTERY: No significant atherosclerotic disease noted [] CORONARY CALCIUM SCORE: Not done Conclusion: Minimal atherosclerotic cardiovascular disease present []
== END | disposition home or self-care (01) ==
PROVIDERS: PCP Registered Nurse; Referring Provider Internal Medicine Cardiovascular Disease; Visit Provider Internal Medicine Cardiovascular Disease
DX: I73.00 Raynaud's syndrome without gangrene (principal); E78.5 Hyperlipidemia, unspecified; I10 Essential (primary) hypertension
CPT/HCPCS: 75574; 76380; Q9967; A4216

== ENCOUNTER → 2023-10-06 | Outpatient (CLI) | payer BC, SELFPAY ==
[2023-10-06 11:00] LABS: EXAGEN MAILED SPECIMEN
[2023-10-06 12:27] LABS: Absolute Lymphocyte Count 4.94 X10^3/uL (0.83-4.51); Absolute Neutrophil Count 7.5 X10^3/uL (2.0-7.7); Basophil% 0.8 % (0-1); Eosinophil# 0.12 X10^3/uL; Eosinophils% 0.9 % (0-5); Hematocrit 47.7 % (37-47); Hemoglobin 16.5 g/dL (12.0-15.0); Lymphocyte # 4.94 X10^3/ul (0.83-4.51); Lymphocyte % 37.2 % (19-41); Mean Corp Hgb Conc 34.6 g/dL (32-36); Mean Corpuscular Hgb 29.2 pg (27.0-32.0); Mean Corpuscular Volume 84.3 fL (81-99); Monocyte# 0.56 X10^3/uL; Monocyte% 4.2 % (0-10); NRBC Flagged by Analyzer 0 % (0-5); Neutrophil # 7.51 X10^3/uL (2.7-7.7); Neutrophil % 56.6 % (47-70); Platelet Count 295 K/mm3 (150-450); RBC Distribution Width SD 39.9 fl (35.1-43.9); Red Blood Count 5.66 M/mm3 (4.2-5.4); White Blood Count 13.3 K/mm3 (4.4-11.0)
[2023-10-06 12:44] LABS: Erythrocyte Sedimentation Rate 20 mm/hr (0-30)
[2023-10-06 12:57] LABS: Color, Urine Yellow (Yellow); Glucose, Dipstick 1000 mg/dl (Normal); Ketone-Dipstick Negative (Negative); Leukocyte Esterase-Dipstick Negative /ul (Negative); Nitrite-Dipstick Negative (Negative); Occult Blood-Urine Negative /ul (Negative); Protein-Dipstick Negative (Negative); Urine Bilirubin Dipstick Negative (Negative); Urine Clarity Clear (Clear); Urine Urobilinogen Normal (Normal); Urine pH 6.5 (5.0 - 8.0)
[2023-10-06 13:37] LABS: ALB/GLOB Ratio 0.9 RATIO (0.9-2.4); AST(SGOT) 12 U/L (15-37); Alanine Aminotransfer ALT/SGPT 28 U/L (13-56); Albumin, Serum 3.8 g/dL (3.2-5.0); Alkaline Phosphatase 88 U/L (45-117); Anion Gap 8 (5-15); BUN 15 mg/dL (7-18); BUN/Creat Ratio 20.1 RATIO (10-20); CRP < 2.90 mg/L (0.0-3.0); Calcium,Total 9.8 mg/dL (8.5-10.1); Chloride 102 mmol/L (98-107); Creatinine, Serum 0.75 mg/dL (0.55-1.02); EST Glomerular Filtration Rate 93 mL/min (>60); Est Glom Filt Rate - Afr Amer 113 mL/min (>60); Globulin 4.3 g/dL (2.2-4.2); Glucose 282 mg/dL (74-106); Potassium 3.6 mmol/L (3.5-5.1); Protein, Total 8.1 g/dL (6.4-8.2); Protein, Urine (Random) 14.2 mg/dL (<11.9); Protein:Creat Ratio 288 mg/g CRE (0-200); Sodium Level 133 mmol/L (136-145)
[2023-10-06 13:41] LABS: CPK Total, Creatine Kinase 60 U/L (26-192); Cholesterol 173 mg/dL (200); High Density Lipoprotein 33 mg/dL; Triglycerides 378 mg/dL; Very Low Density Lipoprotein 76 mg/dL (5-40)
[2023-10-06 13:53] LABS: Hepatitis B Surface Antibody Reactive; Hepatitis B Surface Antigen Non-Reactive (Nonreactive); Hepatitis C Antibody Non-Reactive (Nonreactive)
== END | disposition home or self-care (01) ==
LOC: MTLAB 09:57
PROVIDERS: Internal Medicine Cardiovascular Disease; PCP Registered Nurse; Referring Provider Internal Medicine Rheumatology; Visit Provider Internal Medicine Rheumatology
DX: I73.00 Raynaud's syndrome without gangrene (principal); G47.26 Circadian rhythm sleep disorder, shift work type
CPT/HCPCS: 36415; 80053; 80061; 81002; 82550; 82570; 83735; 84156; 85025; 85652; 86140; 86706; 86803; 87340

== ENCOUNTER → 2023-11-04 | Outpatient (CLI) | payer BC, SELFPAY ==
[2023-11-04 17:42] LABS: Hematocrit 44.8 % (37-47); Hemoglobin 15.5 g/dL (12.0-15.0); Mean Corp Hgb Conc 34.6 g/dL (32-36); Mean Corpuscular Hgb 29.4 pg (27.0-32.0); Mean Platelet Vol. 9.2 fl (6.2-12.0); Platelet Count 292 K/mm3 (150-450); RBC Distribution Width CV 12.7 % (11.6-14.6); RBC Distribution Width SD 39.7 fl (35.1-43.9); Red Blood Count 5.27 M/mm3 (4.2-5.4); White Blood Count 10.6 K/mm3 (4.4-11.0)
[2023-11-04 18:18] LABS: ALB/GLOB Ratio 0.9 RATIO (0.9-2.4); AST(SGOT) 21 U/L (15-37); Alanine Aminotransfer ALT/SGPT 35 U/L (13-56); Albumin, Serum 3.6 g/dL (3.2-5.0); Alkaline Phosphatase 88 U/L (45-117); Anion Gap 7 (5-15); BUN 8 mg/dL (7-18); BUN/Creat Ratio 10.8 RATIO (10-20); CRP 3.16 mg/L (0.0-3.0); Calcium,Total 9.1 mg/dL (8.5-10.1); Chloride 105 mmol/L (98-107); Creatinine, Serum 0.74 mg/dL (0.55-1.02); EST Glomerular Filtration Rate 94 mL/min (>60); Est Glom Filt Rate - Afr Amer 114 mL/min (>60); Globulin 4.1 g/dL (2.2-4.2); Glucose 89 mg/dL (74-106); Potassium 3.5 mmol/L (3.5-5.1); Protein, Total 7.7 g/dL (6.4-8.2); Sodium Level 135 mmol/L (136-145)
[2023-11-06 15:08] LABS: Endomysial Antibody IgA Negative (Negative); Immunoglobulin A 379 mg/dL (87-352); t-Transglutaminase IgA <2 U/mL (0-3)
== END | disposition home or self-care (01) ==
LOC: MTLAB 16:44
PROVIDERS: PCP Registered Nurse; Referring Provider Internal Medicine Gastroenterology; Visit Provider Internal Medicine Gastroenterology
DX: R19.7 Diarrhea, unspecified (principal)
CPT/HCPCS: 36415; 80053; 82784; 83516; 85027; 86140; 86255

== ENCOUNTER → 2023-12-08 | Outpatient (CLI) | payer BC, SELFPAY ==
[2023-12-09 16:10] LABS: Endomysial Antibody IgA Negative (Negative); Immunoglobulin A 391 mg/dL (87-352); t-Transglutaminase IgA <2 U/mL (0-3)
== END | disposition home or self-care (01) ==
LOC: MTLAB 09:01
PROVIDERS: PCP Registered Nurse; Referring Provider Internal Medicine Gastroenterology; Visit Provider Internal Medicine Gastroenterology
DX: R19.7 Diarrhea, unspecified (principal)
CPT/HCPCS: 36415; 82784; 83516; 86255